=== PATIENT | female | born 1970 | race Caucasian/White ===

== ENCOUNTER 2019-01-08 03:19 | Emergency (ER) | payer BC ==
[2019-01-08] MEDS ORDERED: MORPHINE 4 MG/ML SYR ONE ×2 (03:45→06:29)
[2019-01-08] MEDS ORDERED: ONDANSETRON 4 MG/2 ML VIAL ONE (03:45)
[2019-01-08 04:29] LABS: Basophils % 1.2 % (0-1.3); Hematocrit 40.6 % (36.0-45.0); Lymphocytes % 36.2 % (15.3-44.8); MPV 8.7 fL (7.6-11.3); RBC Red Blood Cell Count 4.55 M/uL (3.86-4.86)
[2019-01-08 04:37] LABS: ALT/SGPT 40 U/L (12-78); AST/SGOT 18 U/L (15-37); Alkaline Phosphatase 72 U/L (45-117); BUN Blood Urea Nitrogen 19 mg/dL (7-18); Bicarbonate 27 mmol/L (21-32); Bilirubin Direct < 0.1 mg/dL (0-0.2); Bilirubin Total 0.3 mg/dL (0.2-1.0); Glucose Level 131 mg/dL (74-106); Lipase 243 U/L (73-393); Potassium 3.8 mmol/L (3.5-5.1); Sodium Level 144 mmol/L (136-145)
[2019-01-08 05:34] LABS: Urine Bacteria <20 /HPF (<20); Urine Culture Reflex Order NOT NEEDED; Urine RBC >50 /HPF (NONE SEEN)
[2019-01-08] MEDS ORDERED: TAMSULOSIN 0.4 MG SR CAP ONE (06:40)
[2019-01-08] MEDS ORDERED: MAGNESIUM SULFATE 1 gm IVPB 1 GM/100 ML BAG IV ONE (06:40)
[2019-01-08] MEDS ORDERED: KETOROLAC 30 MG/ML INJ ONE (06:40)
--- NOTE | 2019-01-08 07:53 | EDPHYS ---
Physician Documentation [facility] Name: Britt Aragon Age: 48 yrs Sex: Female : 1970 Arrival Date: 01/08/2019 Time: 03:21 Bed 2 Private MD: ED Physician Dilip Marin HPI: 01/08 04:05 This 48 yrs old Female presents to ER via Ambulatory with complaints of rn Abdominal Pain. 04:05 The patient presents with abdominal pain left flank. rn 04:05 Onset: The symptoms/episode began/occurred yesterday. The symptoms do not radiate. rn Associated signs and symptoms: Pertinent positives: constipation, nausea, Pertinent negatives: blood in stools, chest pain, diarrhea, dysuria, fever. Associated signs and symptoms: Pertinent negatives: hematuria. Modifying factors: The symptoms are alleviated by nothing, the symptoms are aggravated by nothing. Severity of pain: At its worst the pain was moderate in the emergency department the pain is unchanged. The patient has not experienced similar symptoms in the past. The patient has not recently seen a physician. [employer]: 03:41 LMP N/A - uterine ablation bb Historical: - Allergies: 03:41 progesterone; bb - Home Meds: 03:41 Butalbital Compound 50-325-40 mg Oral tab [Active]; ibuprofen 800 mg Oral tab [Active]; bb amitriptyline 10 mg Oral tab [Active]; trazodone 50 mg Oral tab nightly [Active]; montelukast 10 mg oral tab 1 tab once daily [Active]; ferrous sulfate 325 mg (65 mg iron) Oral TbEC [Active]; levocetirizine 5 mg oral tab 1 tab once daily [Active]; - PMHx: 03:41 Migraines; "Nerve issue in head"; bb - PSHx: 03:41 tubes removed; lasik; ; wrist surgery; uterine ablation; bb - Immunization history:: Adult Immunizations up to date. - Social history:: Smoking status: Patient uses tobacco products, Vapes. - Ebola Screening: : No symptoms or risks identified at this time. - Family history:: not pertinent. - Hospitalizations: : No recent hospitalization is reported. ROS: 04:05 Constitutional: Negative for fever, chills, and weight loss, Eyes: Negative for injury, rn pain, redness, and discharge, Neck: Negative for injury, pain, and swelling, Cardiovascular: Negative for chest pain, palpitations, and edema, Respiratory: Negative for shortness of breath, cough, wheezing, and pleuritic chest pain, Abdomen/GI: + left flank and abd pain, + nausea, + constipation : Negative for injury, bleeding, discharge, and swelling, MS/Extremity: Negative for injury and deformity, Skin: Negative for injury, rash, and discoloration, Neuro: Negative for headache, weakness, numbness, tingling, and seizure. Exam: 04:05 Constitutional: This is a well developed, well nourished patient who is awake, alert, rn appears uncomfortable Head/Face: Normocephalic, atraumatic. ENT: MMM Neck: Trachea midline, no thyromegaly or masses palpated, and no cervical lymphadenopathy. Supple, full range of motion without nuchal rigidity, or vertebral point tenderness. No Meningismus. Cardiovascular: Regular rate and rhythm. No pulse deficits. Respiratory: No increased work of breathing, no retractions or nasal flaring. Abdomen/GI: Soft, non-tender MS/ Extremity: Pulses equal, no cyanosis. Neurovascular intact. Full, normal range of motion. Equal circumference. Neuro: Awake and alert, GCS 15, oriented to person, place, time, and situation. Cranial nerves II-XII grossly intact. Motor strength 5/5 in all extremities. Sensory grossly intact. Cerebellar exam normal. Vital Signs: 03:41 BP 157 / 88; Pulse 64; Resp 16 S; Temp 97.7(O); Pulse Ox 98% on R/A; Weight 73.03 kg bb (R); Height 4 ft. 11 in. (149.86 cm) (R); Pain 10/10; 04:17 BP 128 / 73; Pulse 66; Resp 17; Pulse Ox 98% ; Pain 4/10; rr5 05:34 BP 122 / 78; Pulse 55; Resp 17; Pulse Ox 97% on R/A; tl1 06:30 BP 137 / 75; Pulse 65; Resp 20; Pulse Ox 98% ; Pain 10/10; rr5 07:35 BP 127 / 70; Pulse 49; Resp 17; Pulse Ox 96% on R/A; Pain 6/10; tw2 08:07 BP 147 / 68; Pulse 86; Resp 17; Pulse Ox 98% on R/A; Pain 3/10; tw2 03:41 Body Mass Index 32.52 (73.03 kg, 149.86 cm) bb MDM: 03:23 Patient medically screened. rn 07:50 Data reviewed: vital signs, nurses notes, lab test result(s), radiologic studies, CT cp scan, and as a result, I will. 07:50 Counseling: I had a detailed discussion with the patient and/or guardian regarding: the cp historical points, exam findings, and any diagnostic results supporting the discharge/admit diagnosis, lab results, radiology results, the need for outpatient follow up, a urologist. Response to treatment: the patient's symptoms have markedly improved after treatment, VSS. Pain markedly improved, and as a result, I will discharge patient. 01/08 03:41 Order name: CBC with Diff rn 01/08 03:41 Order name: Basic Metabolic Panel rn 01/08 03:41 Order name: Hepatic Function rn 01/08 03:41 Order name: Lipase rn 01/08 03:41 Order name: Urine Microscopic Only rn 01/08 04:39 Order name: Basic Metabolic Panel; Complete Time: 06:25 EDMS 01/08 03:41 Order name: CT Stone Protocol rn 01/08 04:39 Order name: Liver (Hepatic) Function; Complete Time: 06:25 EDMS 01/08 04:39 Order name: Lipase; Complete Time: 06:25 EDMS 01/08 04:39 Order name: CBC with Automated Diff; Complete Time: 06:25 EDMS 01/08 05:35 Order name: Urine Microscopic Only; Complete Time: 06:25 EDID 01/08 03:41 Order name: IV Saline Lock; Complete Time: 03:46 rn 01/08 03:41 Order name: Labs collected and sent; Complete Time: 03:46 rn 01/08 03:41 Order name: Urine Dipstick-Ancillary (obtain specimen); Complete Time: 04:26 rn Administered Medications: 03:45 Drug: Zofran 4 mg Route: IVP; Site: right antecubital; rr5 04:17 Follow up: Response: No adverse reaction rr5 03:48 Drug: morphine 4 mg {Note: rass 0.} Route: IVP; Site: right antecubital; rr5 04:16 Follow up: Response: No adverse reaction; Pain is decreased; RASS: Alert and Calm (0) rr5 06:32 Drug: morphine 4 mg {Note: rass 0.} Route: IVP; Site: right antecubital; rr5 07:34 Follow up: Response: No adverse reaction; Pain is decreased; RASS: Light sedation (-2) tw2 06:42 Drug: TORadol - Ketorolac 15 mg Route: IVP; Site: right antecubital; rr5 07:34 Follow up: Response: No adverse reaction; Pain is decreased tw2 06:44 Drug: Magnesium Sulfate 1 grams Route: IVPB; Infused Over: 1 hrs; Site: right rr5 antecubital; 08:00 Follow up: IV Status: Completed infusion tw2 06:44 Drug: Flomax 0.4 mg Route: PO; rr5 07:20 Follow up: Response: No adverse reaction tw2 Disposition: 01/08/19 07:52 Discharged to Home. Impression: Calculus of kidney and ureter - left. - Condition is Stable. - Discharge Instructions: Kidney Stones. - Prescriptions for Tylenol- Codeine #3 300-30 mg Oral Tablet - take 2 tablets by ORAL route every 6 hours As needed; 20 tablet. Zofran 4 mg Oral Tablet - take 1 tablet by ORAL route every 12 hours As needed; 20 tablet. Flomax 0.4 mg Oral Capsule, Sust. Release 24 hr - take 1 capsule by ORAL route once daily 1/2 hour following the same meal each day; 5 capsule. Cipro 500 mg Oral Tablet - take 1 tablet by ORAL route every 12 hours for 7 days; 14 tablet. - Medication Reconciliation Form, Thank You Letter, Antibiotic Education, Prescription Opioid Use, Work release form, Family Work Release form. - Follow up: Jorje Soto MD; When: Tomorrow; Reason: Recheck today's complaints. - Problem is new. - Symptoms have improved. Signatures: Dispatcher [employer] Padmaja Guevara RN RN Dilip Magana MD MD rn Page, Corey, PA PA cp Wise, Tara, RN RN tw2 Armani Kelsey RN RN rr5 Corrections: (The following items were deleted from the chart) 07:55 07:52 01/08/2019 07:52 Discharged to Home. Impression: Calculus of kidney and ureter - cp right. Condition is Stable. Forms are Medication Reconciliation Form, Thank You Letter, Antibiotic Education, Prescription Opioid Use. Follow up: Jorje Soto; When: Tomorrow; Reason: Recheck today's complaints. Problem is new. Symptoms have improved. cp 08:08 07:55 01/08/2019 07:52 Discharged to Home. Impression: Calculus of kidney and ureter - tw2 left. Condition is Stable. Discharge Instructions: Kidney Stones. Prescriptions for Tylenol-Codeine #3 300-30 mg Oral Tablet - take 2 tablets by ORAL route every 6 hours As needed; 20 tablet, Zofran 4 mg Oral Tablet - take 1 tablet by ORAL route every 12 hours As needed; 20 tablet, Flomax 0.4 mg Oral Capsule, Sust. Release 24 hr - take 1 capsule by ORAL route once daily 1/2 hour following the same meal each day; 5 capsule, Cipro 500 mg Oral Tablet - take 1 tablet by ORAL route every 12 hours for 7 days; 14 tablet. and Forms are Medication Reconciliation Form, Thank You Letter, Antibiotic Education, Prescription Opioid Use, Work release form, Family Work Release. Follow up: Jorje Soto; When: Tomorrow; Reason: Recheck today's complaints. Problem is new. Symptoms have improved. cp
--- NOTE | 2019-01-08 07:53 | ER ---
Nurse's Notes [facility] Name: Britt Aragon Age: 48 yrs Sex: Female : 1970 Arrival Date: 01/08/2019 Time: 03:21 Bed 2 Private MD: Diagnosis: Calculus of kidney and ureter-left Presentation: 01/08 03:34 Presenting complaint: Patient states: she has left sided back pain radiating to abdomen bb since yesterday morning, pain is intermittent but is getting worse now it is 10/10 the pain woke her up from a sleep tonight. Transition of care: patient was not received from another setting of care. Onset of symptoms was January 06, 2019. Risk Assessment: Do you want to hurt yourself or someone else? Patient reports no desire to harm self or others. Initial Sepsis Screen: Does the patient meet any 2 criteria? No. Patient's initial sepsis screen is negative. Does the patient have a suspected source of infection? No. Patient's initial sepsis screen is negative. Care prior to arrival: None. 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 LMP N/A - uterine ablation bb Historical: - Allergies: 03:41 progesterone; bb - Home Meds: 03:41 Butalbital Compound 50-325-40 mg Oral tab [Active]; ibuprofen 800 mg Oral tab [Active]; bb amitriptyline 10 mg Oral tab [Active]; trazodone 50 mg Oral tab nightly [Active]; montelukast 10 mg oral tab 1 tab once daily [Active]; ferrous sulfate 325 mg (65 mg iron) Oral TbEC [Active]; levocetirizine 5 mg oral tab 1 tab once daily [Active]; - PMHx: 03:41 Migraines; "Nerve issue in head"; bb - PSHx: 03:41 tubes removed; lasik; ; wrist surgery; uterine ablation; bb - Immunization history:: Adult Immunizations up to date. - Social history:: Smoking status: Patient uses tobacco products, Vapes. - Ebola Screening: : No symptoms or risks identified at this time. - Family history:: not pertinent. - Hospitalizations: : No recent hospitalization is reported. Screenin:49 Abuse screen: Denies threats or abuse. Denies injuries from another. Nutritional rr5 screening: No deficits noted. Tuberculosis screening: No symptoms or risk factors identified. Fall Risk IV access (20 points). Total Mosqueda Fall Scale indicates No Risk (0-24 pts). Assessment: 03:35 General: Appears in no apparent distress. uncomfortable, Behavior is calm, cooperative, rr5 appropriate for age. 03:35 Pain: Complains of pain in back Pain radiates to abdomen Pain currently is 10 out of 10 rr5 on a pain scale. Quality of pain is described as aching, Pain began gradually, Is intermittent. Neuro: Level of Consciousness is awake, alert, obeys commands, Oriented to person, place, time, situation, Appropriate for age. Cardiovascular: Capillary refill < 3 seconds Patient's skin is warm and dry. Respiratory: Airway is patent Respiratory effort is even, unlabored, Respiratory pattern is regular, symmetrical. GI: Abdomen is round Bowel sounds present X 4 quads. Abd is soft Reports lower abdominal pain, upper abdominal pain. : Reports pain in left flank(s). EENT: No signs and/or symptoms were reported regarding the EENT system. Derm: Skin is intact, Skin temperature is warm. Musculoskeletal: Circulation, motion, and sensation intact. Capillary refill < 3 seconds. 04:17 Reassessment: Patient appears in no apparent distress at this time. Patient is alert, rr5 oriented x 3, equal unlabored respirations, skin warm/dry/pink. Patient states feeling better. Patient states symptoms have improved. Pain: Pain currently is 4 out of 10 on a pain scale. 05:25 Reassessment: Patient appears in no apparent distress at this time. Patient and/or rr5 family updated on plan of care and expected duration. Pain level reassessed. Patient is alert, oriented x 3, equal unlabored respirations, skin warm/dry/pink. no complaints made awaiting for ct result. 06:25 Reassessment: complaints pain came back pain score 10/10. ED provider aware with order rr5 made and carried out. 06:25 Reassessment: awaiting for CT result. ED provider spoke to patient. rr5 07:34 Reassessment: Patient appears in no apparent distress at this time. Patient and/or tw2 family updated on plan of care and expected duration. Pain level reassessed. Patient is alert, oriented x 3, equal unlabored respirations, skin warm/dry/pink. pt is sleeping at this time, arouseable to name. 08:07 Reassessment: Patient appears in no apparent distress at this time. Patient and/or tw2 family updated on plan of care and expected duration. Pain level reassessed. Patient is alert, oriented x 3, equal unlabored respirations, skin warm/dry/pink. Vital Signs: 03:41 BP 157 / 88; Pulse 64; Resp 16 S; Temp 97.7(O); Pulse Ox 98% on R/A; Weight 73.03 kg bb (R); Height 4 ft. 11 in. (149.86 cm) (R); Pain 10/10; 04:17 BP 128 / 73; Pulse 66; Resp 17; Pulse Ox 98% ; Pain 4/10; rr5 05:34 BP 122 / 78; Pulse 55; Resp 17; Pulse Ox 97% on R/A; tl1 06:30 BP 137 / 75; Pulse 65; Resp 20; Pulse Ox 98% ; Pain 10/10; rr5 07:35 BP 127 / 70; Pulse 49; Resp 17; Pulse Ox 96% on R/A; Pain 6/10; tw2 08:07 BP 147 / 68; Pulse 86; Resp 17; Pulse Ox 98% on R/A; Pain 3/10; tw2 03:41 Body Mass Index 32.52 (73.03 kg, 149.86 cm) bb ED Course: 03:21 Patient arrived in ED. ag3 03:23 Dilip Marin MD is Attending Physician. rn 03:36 Triage completed. bb 03:40 Patient has correct armband on for positive identification. Placed in gown. Bed in low rr5 position. Call light in reach. Side rails up X2. Pulse ox on. NIBP on. 03:41 Arm band placed on Patient placed in an exam room, on a stretcher, on pulse oximetry. bb Family accompanied patient. 03:43 Inserted saline lock: 20 gauge in right antecubital area, using aseptic technique. lt1 03:46 Initial lab(s) drawn, by me, sent to lab. lt1 04:09 Armani Kelsey RN is Primary Nurse. rr5 06:37 Pedro Griffith PA is PHCP. cp 07:19 Primary Nurse role handed off by Armani Kelsey RN tw2 07:19 Leeanne Burris, RN is Primary Nurse. tw2 07:51 Jorje Soto MD is Referral Physician. cp 08:08 No provider procedures requiring assistance completed. IV discontinued, intact, tw2 bleeding controlled, No redness/swelling at site. Pressure dressing applied. 20:44 CT Stone Protocol In Process Unspecified. EDMS Administered Medications: 03:45 Drug: Zofran 4 mg Route: IVP; Site: right antecubital; rr5 04:17 Follow up: Response: No adverse reaction rr5 03:48 Drug: morphine 4 mg {Note: rass 0.} Route: IVP; Site: right antecubital; rr5 04:16 Follow up: Response: No adverse reaction; Pain is decreased; RASS: Alert and Calm (0) rr5 06:32 Drug: morphine 4 mg {Note: rass 0.} Route: IVP; Site: right antecubital; rr5 07:34 Follow up: Response: No adverse reaction; Pain is decreased; RASS: Light sedation (-2) tw2 06:42 Drug: TORadol - Ketorolac 15 mg Route: IVP; Site: right antecubital; rr5 07:34 Follow up: Response: No adverse reaction; Pain is decreased tw2 06:44 Drug: Magnesium Sulfate 1 grams Route: IVPB; Infused Over: 1 hrs; Site: right rr5 antecubital; 08:00 Follow up: IV Status: Completed infusion tw2 06:44 Drug: Flomax 0.4 mg Route: PO; rr5 07:20 Follow up: Response: No adverse reaction tw2 Outcome: 07:52 Discharge ordered by . cp 08:08 Discharged to home ambulatory, with significant other. tw2 08:08 Condition: stable 08:08 Discharge instructions given to patient, significant other, Instructed on discharge instructions, follow up and referral plans. no drinking with medication, no driving heavy equipment, medication usage, Demonstrated understanding of instructions, follow-up care, medications, Prescriptions given X 4. 08:08 Patient left the ED. tw2 Signatures: Dispatcher [employer] EDMS Padmaja Baires RN RN bb Nieto, Roman, MD MD rn Lasagna, Tonya, RN RN tl1 Pedro Griffith PA PA cp Leeanne Burris RN RN tw2 Isa Frausto ag3 Armani Kelsey RN RN rr5 Jhoana Hyatt lt1 Corrections: (The following items were deleted from the chart) 07:35 07:35 BP 127 / 70; Pulse 49bpm; Resp 17bpm; Pulse Ox 96% RA; tw2 tw2
[2019-01-08 08:25] VITALS: TEMP 97.7
[2019-01-08 08:32] VITALS: BP 147/68; O2SAT 98
--- NOTE | 2019-01-09 10:25 | RAD REPORT ---
EXAM DESCRIPTION: CT Abdomen and Pelvis Without Intravenous Contrast CLINICAL HISTORY: The patient is 48 years old and is Female; left flank and abd pain TECHNIQUE: Axial computed tomography images of the abdomen and pelvis without intravenous contrast. Sagittal and coronal reformatted images were created and reviewed. This CT exam was performed usi ng one or more of the following dose reduction techniques: automated exposure control, adjustment o f the mA and/or kV according to patient size, and/or use of iterative reconstruction technique. COMPARISON: No relevant prior studies available. FINDINGS: LUNG BASES: Unremarkable. No mass. No consolidation. ABDOMEN: LIVER: Homogeneous without focal mass. GALLBLADDER AND BILE DUCTS: No calcified stones. No ductal dilation. PANCREAS: Unremarkable. No ductal dilation. SPLEEN: A splenule is present within the left upper quadrant. The spleen is unremarkable. ADRENALS: Unremarkable. No mass. KIDNEYS AND URETERS: Mild left hydronephrosis and proximal hydroureter is present secondary to a 6 mm proximal left ureteral calculus. Edema of the left kidney with minimal perinephric stranding is present. Bilateral intrarenal calcifications are present. STOMACH AND BOWEL: The stomach is distended with food contents. The small bowel is normal in koffi iber. Stool is present throughout the colon. There is no mucosal thickening or evidence of bowel obst ruction. PELVIS: APPENDIX: The appendix is normal in caliber without surrounding inflammation. BLADDER: The bladder is not well distended. REPRODUCTIVE: Unremarkable as visualized. ABDOMEN and PELVIS: INTRAPERITONEAL SPACE: Unremarkable. No free air. No significant fluid collection. BONES/JOINTS: No acute fracture. SOFT TISSUES: The soft tissues are normal. VASCULATURE: Unremarkable. No abdominal aortic aneurysm. LYMPH NODES: Unremarkable. No enlarged lymph nodes. IMPRESSION: 1. Mild left hydronephrosis and proximal hydroureter is present secondary to a 6 mm pr oximal left ureteral calculus. 2. Bilateral nephrolithiasis. Electronically signed by: Janey Lazo MD 01/08/2019 6:22 AM CDT Due to temporary technical issues with the PACS/Fluency reporting system, reports are being signed by the in house radiologist as a courtesy to ensure prompt reporting. The interpreting radiologist is f ully responsible for the content of the report.
== END 2019-01-08 08:08 | disposition home or self-care (01) ==
LOC: ER 03:19
DX: N20.2 Calculus of kidney with calculus of ureter (principal); F17.290 Nicotine dependence, other tobacco product, uncomplicated; Z88.8 Allergy status to other drugs, medicaments and biological substances
CPT/HCPCS: 96365; 85025; 80048; 36415; 80076; 81015; 83690; 76377; 74176; 96375; 99284; J3475; J2405

== ENCOUNTER 2020-04-23 16:24 | Emergency (ER) | payer BC ==
--- OUTSIDE RECORDS SUMMARY | 2020-04-23 16:26 | XMS REPORT | Continuity of Care Document ---
:1970 Author Organization [facility] t Address [address] [place] [address] Care Team Providers Name Role Phone yMles ANGELES, Romero Attending Clinician Javad ANGELES, David Attending Clinician Problems This patient has no known problems. Allergies, Adverse Reactions, Alerts This patient has no known allergies or adverse reactions. Medications This patient has no known medications. Procedures This patient has no known procedures. Encounters Start End Encounter Admission Attending Care Care Encounter Source Date/Time Date/Time Type Type Clinicians Facility Department ID 2020-02-12 2020-02-12 Refill [facility] [id number] 00:00:00 00:00:00 Thai Ridley [id number] [place] [id number] Profmya [phone] [address] 2019-11-07 2019-11-07 [facility] [id number] 14:59:00 23:59:00 Encounter Aleisha Hernandez RONAN [id number] [facility] [id number] 2019-10-30 2019-10-30 Telephone Myles [facility] [id number] 00:00:00 00:00:00 Thai Ridley [id number] [place] [id number] Jenna [phone] [facility] 092 [facility] 2019-10-10 2019-10-10 Office Myles [facility] [id number] 09:35:15 10:05:04 Visit Thai Ridley [id number] [facility] [id number] [phone] [facility] Results This patient has no known results.
--- OUTSIDE RECORDS SUMMARY | 2020-04-23 16:27 | XMS REPORT | Summary of Care ---
:1970 Author Organization [facility] - [address] [address] Care Team Providers Name Role Phone Pedro Hammer Primary Care Provider Reason for Visit Reason Comments Refill Request Encounter Details Date Type Department Care Team Description 02/12/2020 Refill [facility] Thai Bueno MD Refill Request Neurology-[address] [place] [id number] [address] [place] [id number] [phone] Allergies Active Allergy Reactions Severity Noted Date Comments Progesterone Unknown - See comments 09/07/2018 Becom es angry Tegaderm Dressing Itching 09/27/2018 documented as of this encounter (statuses as of 02/12/2020) Medications Medication Sig Dispensed Refills Start End Date Status Date ferrous sulfate 325 TK 1 T PO D 0 Active mg (65 mg iron) 9 tablet levocetirizine Take by 0 Activ e dihydrochloride mouth. (XYZAL ORAL) montelukast 10 mg 0 Ac tive tablet 9 Ibuprofen 200 mg Take by 0 Act duane capsule mouth. melatonin 10 mg TbDL Take by 0 Active mouth. conj Take 1 30 tablet 11 Active estrogens-bazedoxife tablet by 9 ne (DUAVEE) 0.45-20 mouth daily. mg TabIndications: Menopause present, Postmenopausal HRT (hormone replacement therapy) buPROPion SR Take 150 mg 0 Activ e (WELLBUTRIN SR) 150 by mouth 2 mg SR tablet (two) times daily. Quetiapine 50 mg Take by 0 Act duane tablet mouth. gabapentin 300 mg TAKE 2 180 capsule 2 Active capsule CAPSULES BY 0 MOUTH THREE TIMES DAILY gabapentin 300 mg TAKE 2 180 capsule 2 02/12/20 Discontinued capsule CAPSULES BY 0 20 (Reorder ) MOUTH THREE TIMES DAILY documented as of this encounter (statuses as of 02/12/2020) Active Problems Problem Noted Date Abnormal mammogram 02/21/2019 Overview: 02/21/2019 - screening mammogram revealed a normal right breast and a possible cyst of the left breast. 03/02/19 - left breast US - Numerous cyst ic lesions were detected ranging from 4.1 mm at 10:00 to the largest lesion of 12 mm at 10 in the deep portion of the breast. Additional cystic lesions are seen b etween 9 and 3:00 in the entire left upp er breast. In the lateral peripheral region, an inc idental finding of 6 mm lymph node. CONCLUSIONS: No worrisome solid masses detected. Images were reviewed and the findings were discussed with the patient. Annual bilateral mammography evaluation is nathalie ropriate. ACR classification: Category II. Menopause present 02/11/2019 Overview: 02/10/19 - FSH 45, E2 <20 c/w menopause 03/22/19 - FSH 18.9, E2 40 Elevated transaminase level 02/11/2019 Overview: 02/10/19 - AST 43, ALT 64. Patient will be discussing with GI. Screening for colorectal cancer 11/11/2018 Overview: Added automatically from request for dangelo vasile [id number] Stricture of sigmoid colon 10/19/2018 Encounter for female sterilization procedure 9 Overview: 09/27/18 - s/p laparoscopic b/l salpingect vicente. Histology benign Acute cystitis without hematuria 09/25/2018 Overview: 09/21/18 - Urine culture > 100K. E. Coli. S/p Rocephin and Macrobid. 02/11/19 - Urine culture revealed 10,000 -100,000 CFU/mL Streptococcus anginosus s/p Amoxicillin. Obesity (BMI 30-39.9) 09/21/2018 Secondary oligomenorrhea 09/07/2018 Overview: 09/07/18 - hysteroscopy revealed thickene d endometrial tissue. EMB benign. Postcoital bleeding 08/09/2018 Abnormal uterine bleeding 08/09/2018 Overview: 08/09/18 - oligomenorrhea. Pelvic US. RTC for a hysteroscopy with EMB. 08/17/18 - The uterus is normal in size, shape and echotexture. The uterus measures 9.9 x 5.2 x 6.6 cm. An area of hypoechoic appearance is seen in the lower uterine segment likely representing scar from previous . Also noted is a hyp oechoic relatively well-circumscribed area adjacent to the scar tissue. This measures 2.3 x 2.0 x 1.8 cm in size and is likely a fib roid. The endometrial stripe is normal and measures 7.3 mm. Both ovaries are normal. There is a small hypoechoic lesion is present in the right ovary with multipl e thin septations, measuring 1.7 x 1.4 x 1.0 cm and is likely a hemorrhagic cyst. 09/27/18 - s/p endometrial ablation and b/ l salpingectomy. Histology benign Family history of breast cancer 08/09/2018 Overview: FH of maternal aunt and grandmother with breast cancer documented as of this encounter (statuses as of 02/12/2020) Resolved Problems Problem Noted Date Resolved Date Oligomenorrhea, unspecified type 09/21/201803/22/ 019 Overview: Added automatically from request for dangelo burnette [id number] documented as of this encounter (statuses as of 02/12/2020) Social History Tobacco Use Types Packs/Day Years Used Date Former Smoker Cigarettes Quit: 12/09/19 12 Smokeless Tobacco: Current User Comments: currently vaping Alcohol Use Drinks/Week oz/Week Comments Yes rare Sex Assigned at Date Recorded Not on file documented as of this encounter Last Filed Vital Signs Not on filedocumented in this encounter Miscellaneous Notes Telephone Encounter - Odessa Anderson LVN - 02/12/2020 2:46 PM CDT Requested Prescriptions Pending Prescriptions Disp Refills gabapentin 300 mg capsule 180 capsule 2 Sig: TAKE 2 CAPSULES BY MOUTH THREE TIMES DAILY Refilled per guidelines, sent to pharmacy on file. ODESSA ANDERSON LVN 02/12/2020 2:47 PM elephone Encounter - Shalonda Méndez LVN - 02/12/2020 2:27 PM CDT Received erx refill request for: Requested Prescriptions Pending Prescriptions Disp Refills gabapentin 300 mg capsule 180 capsule 2 Sig: TAKE 2 CAPSULES BY MOUTH THREE TIMES DAILY Last filled: gabapentin 300 mg capsule 180 capsule 2 10/30/2019 Follow up scheduled for : Not scheduled yet Last office visit: 10-10-19 Refilled approval sent to: [facility]: [id number] - [place], [place] - [address] [place] [address] Refilled per Guidelines documented in this encounter Plan of Treatment Health Maintenance Due Date Last Done Comments DTaP,Tdap,and Td Vaccines (1 02/24/1991 - Tdap) INFLUENZA VACCINE (#1) 2019 Breast Cancer Screening 02/22/2020 02/21/2019, (MAMMOGRAM) 01/29/2014 Depression Screening 03/13/2020 03/13/2019 PAP SMEAR 08/09/2021 08/09/2018, 01/30/2014 COLONOSCOPY 11/29/2028 11/29/2018 Colorectal Cancer Screening 11/29/2028 PNEUMOCOCCAL 0-64 YEARS Aged Out No longe r eligible based COMBINED SERIES on patient's age to complete this to pic documented as of this encounter Results Not on filedocumented in this encounter Insurance Payer Benefit Plan Subscriber ID Effective Dates Phone Address Type / Group [employer] [place] [id number] 2018-Bienvenido [phone] [address] PPO/POS [place] - OUT OF t [id number] [place] [address] documented as of this encounter
[2020-04-23] MEDS ORDERED: HYDROCODONE/APAP 10/325 TAB ONE (16:58)
--- NOTE | 2020-04-23 17:19 | RAD REPORT ---
EXAM DESCRIPTION: CTSpine Lumbar Wo Con04/23/2020 5:02 pm CLINICAL HISTORY: Back injury with back pain and radiculopathy status post fall COMPARISON: None TECHNIQUE: Computed axial tomography lumbar spine was obtained with coronal and sagittal reconstruct ion. All CT scans are performed using dose optimization technique as appropriate and may include automated exposure control or mA/KV adjustment according to patient size. FINDINGS: An acute mild compression fracture involves the superior aspect of the L2 vertebral body. Compression is approximately 15%. The pedicles are not involved. There is no retropulsion of fracture fragment into the spinal canal. No dislocation 2.9 centimeter right ovarian cyst IMPRESSION: Mild acute compression fracture L2 vertebral body 2.9 centimeter right ovarian cyst. Ultrasound in approximately 2 months recommended to assess stabili ty/resolution
--- NOTE | 2020-04-23 17:24 | RAD REPORT ---
EXAM DESCRIPTION: CT - Pelvis Wo Cont - 04/23/2020 5:02 pm CLINICAL HISTORY: Pelvic pain status post fall COMPARISON: None. TECHNIQUE: Computed axial tomography of the pelvis was obtained. Coronal and sagittal reconstruction performed All CT scans are performed using dose optimization technique as appropriate and may include automated exposure control or mA/KV adjustment according to patient size. FINDINGS: No fracture or dislocation seen. Muscles are normal size and density. A subcutaneous contusion is not noted No significant hip joint effusion IMPRESSION: No fracture seen
--- NOTE | 2020-04-23 17:56 | EDPHYS ---
Physician Documentation [facility] Name: Britt Aragon Age: 50 yrs Sex: Female : 1970 Arrival Date: 04/23/2020 Time: 16:28 Bed 20 Private MD: ED Physician Dilip Marin HPI: 04/23 18:02 This 50 yrs old Female presents to ER via Ambulatory with complaints of Fall kb Injury, Back Pain. 18:02 Details of fall: The patient fell from an upright position, while skating. Onset: The kb symptoms/episode began/occurred at 15:00. Associated injuries: The patient sustained injury to the low back, pain, pain with movement. Severity of symptoms: At their worst the symptoms were moderate, in the emergency department the symptoms are unchanged. The patient has not experienced similar symptoms in the past. The patient has not recently seen a physician. 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 - Social history:: Smoking status: Patient denies any tobacco usage or history of. - Immunization history: Last tetanus immunization: - up to date. ROS: 18:01 Constitutional: Negative for fever, chills, and weight loss, Cardiovascular: Negative kb for chest pain, palpitations, and edema, Respiratory: Negative for shortness of breath, cough, wheezing, and pleuritic chest pain, Abdomen/GI: Negative for abdominal pain, nausea, vomiting, diarrhea, and constipation, MS/Extremity: Negative for injury and deformity, Skin: Negative for injury, rash, and discoloration, Neuro: Negative for headache, weakness, numbness, tingling, and seizure. 18:01 Back: Positive for pain at rest, pain with movement. Exam: 18:01 Constitutional: This is a well developed, well nourished patient who is awake, alert, kb and in no acute distress. Head/Face: Normocephalic, atraumatic. Chest/axilla: Normal chest wall appearance and motion. Nontender with no deformity. No lesions are appreciated. Cardiovascular: Regular rate and rhythm with a normal S1 and S2. No gallops, murmurs, or rubs. Normal PMI, no JVD. No pulse deficits. Respiratory: Lungs have equal breath sounds bilaterally, clear to auscultation and percussion. No rales, rhonchi or wheezes noted. No increased work of breathing, no retractions or nasal flaring. Abdomen/GI: Soft, non-tender, with normal bowel sounds. No distension or tympany. No guarding or rebound. No evidence of tenderness throughout. Skin: Warm, dry with normal turgor. Normal color with no rashes, no lesions, and no evidence of cellulitis. MS/ Extremity: Pulses equal, no cyanosis. Neurovascular intact. Full, normal range of motion. Neuro: Awake and alert, GCS 15, oriented to person, place, time, and situation. Cranial nerves II-XII grossly intact. Motor strength 5/5 in all extremities. Sensory grossly intact. Cerebellar exam normal. Normal gait. 18:01 Back: pain, that is moderate, of the lumbar area, ROM is painful, with all movement, normal spinal alignment noted, vertebral tenderness, is appreciated at L2. Vital Signs: 16:34 BP 148 / 89; Pulse 94; Resp 18; Temp 98.9; Pulse Ox 99% ; Weight 91.63 kg; Height 4 ft. ll1 11 in. (149.86 cm); Pain 8/10; 18:17 BP 128 / 79; Pulse 78; Resp 17; Pulse Ox 99% ; Pain 7/10; ll1 16:34 Body Mass Index 40.80 (91.63 kg, 149.86 cm) ll1 Sera Coma Score: 16:47 Eye Response: spontaneous(4). Verbal Response: oriented(5). Motor Response: obeys ll1 commands(6). Total: 15. Trauma Score (Adult): 16:46 Eye Response: spontaneous(1); Verbal Response: oriented(1); Motor Response: obeys ll1 commands(2); Systolic BP: > 89 mm Hg(4); Respiratory Rate: 10 to 29 per min(4); Hollins Score: 15; Trauma Score: 12 MDM: 17:25 Data reviewed: vital signs, nurses notes. Data interpreted: Pulse oximetry: on room air kb is 99 %. Interpretation: normal. Counseling: I had a detailed discussion with the patient and/or guardian regarding: the historical points, exam findings, and any diagnostic results supporting the discharge/admit diagnosis, radiology results, the need for outpatient follow up, a family practitioner, to return to the emergency department if symptoms worsen or persist or if there are any questions or concerns that arise at home. 17:42 Patient medically screened. kb 04/23 16:40 Order name: CT Pelvis wo Cont; Complete Time: 17:25 kb 04/23 16:40 Order name: CT Lumbar Spine Wo Con; Complete Time: 17:25 kb Administered Medications: 16:45 Drug: [place] 10 mg-325 mg 1 tabs {Note: rass 0.} Route: PO; ll1 18:17 Follow up: Response: No adverse reaction; Pain is decreased; RASS: Alert and Calm (0) ll1 Disposition: 04/23/20 17:55 Discharged to Home. Impression: L2 compression fracture - mild, Fall on same level from slipping, tripping and stumbling. - Condition is Stable. - Discharge Instructions: Spinal Compression Fracture. - Prescriptions for Tylenol- Codeine #3 300-30 mg Oral Tablet - take 2 tablets by ORAL route every 6 hours As needed; 16 tablet. Cyclobenzaprine 10 mg Oral Tablet - take 1 tablet by ORAL route every 8 hours As needed; 21 tablet. - Medication Reconciliation Form, Thank You Letter, Antibiotic Education, Prescription Opioid Use form. - Follow up: Emergency Department; When: As needed; Reason: Worsening of condition. Follow up: Private Physician; When: 2 - 3 days; Reason: Recheck today's complaints, Continuance of care, Re-evaluation by your physician. Addendum: 04/29/2020 19:43 Co-signature as Attending Physician, Dilip Marin MD. r n Signatures: Dispatcher [employer] EDHeidi Solorio, CONCERT SINGER-C CONCERT SINGER-CkDilip Hoyos MD MD rn Lewis, Lynsay, RN RN ll1 Corrections: (The following items were deleted from the chart) 04/23 18:19 17:55 04/23/2020 17:55 Discharged to Home. Impression: L2 compression fracture - mild; ll1 Fall on same level from slipping, tripping and stumbling. Condition is Stable. Forms are Medication Reconciliation Form, Thank You Letter, Antibiotic Education, Prescription Opioid Use. Follow up: Emergency Department; When: As needed; Reason: Worsening of condition. Follow up: Private Physician; When: 2 - 3 days; Reason: Recheck today's complaints, Continuance of care, Re-evaluation by your physician. kb
--- NOTE | 2020-04-23 17:56 | ER ---
Nurse's Notes [facility] Name: Britt Aragon Age: 50 yrs Sex: Female : 1970 Arrival Date: 04/23/2020 Time: 16:28 Bed 20 Private MD: Diagnosis: L2 compression fracture - mild;Fall on same level from slipping, tripping and stumbling Presentation: 04/23 16:34 Chief complaint: Patient states: Roller skating at 1500. Fell onto buttocks. Entire ll1 lower back pain, worse on the right side. Pain radiates into R hip. States her feet burn when laying flat. Coronavirus screen: Client denies travel out of the [place] in the last 14 days. At this time, the client does not indicate any symptoms associated with coronavirus-19. Ebola Screen: Patient denies travel to an Ebola-affected area in the 21 days before illness onset. Initial Sepsis Screen: Does the patient meet any 2 criteria? HR > 90 bpm. No. Patient's initial sepsis screen is negative. Does the patient have a suspected source of infection? Yes: Bone or joint infection. Risk Assessment: Do you want to hurt yourself or someone else? Patient reports no desire to harm self or others. Onset of symptoms was April 23, 2020. 16:34 Method Of Arrival: Ambulatory [facility] 16:34 Acuity: YULY 3 ll1 16:47 Care prior to arrival: None. Mechanism of Injury: Fall. Trauma event details: Injury ll1 occurred in the [facility], Injury occurred: April 23, 2020. 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: 18:18 LMP N/A - control method [facility] Trauma Activation: Not Applicable Physician: ED Physician; Name: ; Notified At: ; Arrived At: Physician: General Surgeon; Name: ; Notified At: ; Arrived At: Physician: Radiology; Name: ; Notified At: ; Arrived At: Physician: Respiratory; Name: ; Notified At: ; Arrived At: Physician: Lab; Name: ; Notified At: ; Arrived At: Historical: - Allergies: 16:37 progesterone; ll1 - PMHx: 16:37 "Nerve issue in head"; Migraines; ll1 - PSHx: 16:37 tubes removed; lasik; uterine ablation; ; wrist surgery; ll1 - Immunization history:: Flu vaccine is not up to date. - Social history:: Smoking status: Patient denies any tobacco usage or history of. - Immunization history: Last tetanus immunization: - up to date. Screenin:45 Abuse screen: Denies threats or abuse. Nutritional screening: No deficits noted. ll1 Tuberculosis screening: No symptoms or risk factors identified. Fall Risk Fall in past 12 months (25 points). Gait- Impaired (20 pts.). Total Mosqueda Fall Scale indicates High Risk Score (45 or more points). Fall prevention measures have been instituted. Side Rails Up X 2 Frequent Obs/Assessments Occuring Family Present and informed to notify staff if the need to leave the bedside As available patient and family educated on Fall Prevention Program and Strategies. Primary Survey: 16:46 NO uncontrolled hemorrhage observed. A: The patient is alert. Airway: patent, No ll1 supplemental oxygen in use on arrival. Breathing/Chest: Respiratory pattern: regular, Respiratory effort: spontaneous, unlabored, Breath sounds: clear, Chest inspection: symmetrical rise and fall of the chest. Circulation: Pulses: palpable right radial artery and left radial artery. Skin color: pink, Skin temperature: warm, dry. Disability Alert. Exposure/Environment: There is no evidence of uncontrolled external bleeding. 18:18 Reassessment Breathing/Chest Respiratory pattern Regular Respiratory effort Spontaneous ll1 Unlabored Breath sounds Clear Chest inspection Symmetrical. Assessment: 16:44 General: Appears uncomfortable, Behavior is calm, cooperative, appropriate for age. ll1 Pain: Complains of pain in low back Pain currently is 8 out of 10 on a pain scale. Musculoskeletal: Circulation, motion, and sensation intact. Capillary refill < 3 seconds, Range of motion: intact in all extremities, Reports pain in low back/R hip. Injury Description: Bruise fall while roller skating. 17:45 Reassessment: No changes from previously documented assessment. Patient and/or family ll1 updated on plan of care and expected duration. Pain level reassessed. Patient is alert, oriented x 3, equal unlabored respirations, skin warm/dry/pink. Vital Signs: 16:34 BP 148 / 89; Pulse 94; Resp 18; Temp 98.9; Pulse Ox 99% ; Weight 91.63 kg; Height 4 ft. ll1 11 in. (149.86 cm); Pain 8/10; 18:17 BP 128 / 79; Pulse 78; Resp 17; Pulse Ox 99% ; Pain 7/10; ll1 16:34 Body Mass Index 40.80 (91.63 kg, 149.86 cm) ll1 Sera Coma Score: 16:47 Eye Response: spontaneous(4). Verbal Response: oriented(5). Motor Response: obeys ll1 commands(6). Total: 15. Trauma Score (Adult): 16:46 Eye Response: spontaneous(1); Verbal Response: oriented(1); Motor Response: obeys ll1 commands(2); Systolic BP: > 89 mm Hg(4); Respiratory Rate: 10 to 29 per min(4); Liberty Score: 15; Trauma Score: 12 ED Course: 16:28 Patient arrived in ED. ag5 16:36 Triage completed. ll1 16:37 Arm band placed on. ll1 16:41 Heidi Jefferson FNP-C is PHCP. kb 16:41 Dilip Marin MD is Attending Physician. kb 16:41 Darien Crawley, KATE is Primary Nurse. ll1 16:47 Patient has correct armband on for positive identification. Bed in low position. Call ll1 light in reach. Side rails up X 1. Cardiac monitoring not applicable on this patient. 17:03 CT Pelvis wo Cont In Process Unspecified. EDMS 17:03 CT Lumbar Spine Wo Con In Process Unspecified. EDMS 18:18 No provider procedures requiring assistance completed. Patient did not have IV access ll1 during this emergency room visit. 18:18 Patient maintains SpO2 saturation greater than 95% on room air. Thermoregulation: warm ll1 blanket given to patient. Administered Medications: 16:45 Drug: [place] 10 mg-325 mg 1 tabs {Note: rass 0.} Route: PO; ll1 18:17 Follow up: Response: No adverse reaction; Pain is decreased; RASS: Alert and Calm (0) ll1 Intake: 16:47 PO: 50ml; Total: 50ml. ll1 Outcome: 17:55 Discharge ordered by . kb 18:18 Discharged to home ambulatory. ll1 18:18 Condition: stable 18:18 Discharge instructions given to patient, Instructed on discharge instructions, follow up and referral plans. medication usage, Demonstrated understanding of instructions, follow-up care, medications, Prescriptions given X 2. 18:18 Patient's length of stay in the Emergency Department was greater than 2 hours. ll1 Patient's length of stay was extended due to staffing issues within the emergency department. 18:19 Patient left the ED. ll1 Signatures: Dispatcher [employer] EDHeidi Solorio, BRAYAN CHONG-Salvador Elliott ag5 Darien Crawley, RN RN ll1
[2020-04-23 18:23] VITALS: TEMP 98.9; O2SAT 99
[2020-04-23 18:25] VITALS: BP 128/79
== END 2020-04-23 18:19 | disposition home or self-care (01) ==
LOC: ER 16:24
DX: S32.029A Unspecified fracture of second lumbar vertebra, initial encounter for closed fracture (principal); W19.XXXA Unspecified fall, initial encounter; Y93.21 Activity, ice skating; Y92.9 Unspecified place or not applicable; Z91.048 Other nonmedicinal substance allergy status
CPT/HCPCS: 72131; 72192; 99284

== ENCOUNTER 2020-09-17 07:02 | Day surgery (SDC) | payer BC ==
[2020-09-11 13:55] LABS: Urine Appearance CLOUDY (Clear); Urine Bilirubin NEGATIVE (Negataive); Urine Blood TRACE (Negative); Urine Color YELLOW (Yellow); Urine Glucose NEGATIVE (Negative); Urine Protein NEGATIVE (Negative); Urine Specific Gravity 1.015 (1.005-1.030)
[2020-09-11 13:59] LABS: Absolute Lymphocytes (CBC) 1.9 K/uL (0.7-4.9); Basophils % 1.3 % (0-1.3); Hematocrit 40.5 % (36.0-45.0); Lymphocytes % 33.8 % (15.3-44.8); MPV 8.4 fL (7.6-11.3); RBC Red Blood Cell Count 4.64 M/uL (3.86-4.86)
[2020-09-11 14:00] LABS: Urine Microscopic Reflex ORDER UMIC
[2020-09-11 14:50] LABS: Urine Bacteria <20 /HPF (<20); Urine RBC <5 /HPF (NONE SEEN)
[2020-09-17] MEDS ORDERED: SCOPOLAMINE HYDROBROMIDE PATCH TD ONE ×2 (07:20→07:39)
[2020-09-17] MEDS ORDERED: Ringers Lactate 1,000 ML IV ONE ×2 (07:39→09:54)
[2020-09-17] MEDS ORDERED: CEFAZOLIN/SWI 2gm 2 GM/20 ML SYR ONE (07:39)
[2020-09-17] MEDS ORDERED: GLYCOPYRROLATE 0.2 MG/ML SYR ONE (07:46)
[2020-09-17] MEDS ORDERED: ROCURONIUM 50 MG/5 ML VIAL IV ONE ×3 (07:46→09:18)
[2020-09-17] MEDS ORDERED: propofoL 200 MG/20 ML VIAL IV ONE (07:46)
[2020-09-17] MEDS ORDERED: LIDOCAINE 2% MPF 5 ML VIAL ONE (07:47)
[2020-09-17] MEDS ORDERED: MIDAZOLAM HCL 2 MG/2 ML INJ ONE (07:47)
[2020-09-17] MEDS ORDERED: FENTANYL CITR 250 MCG/5 ML ONE (07:47)
[2020-09-17] MEDS ORDERED: ONDANSETRON 4 MG/2 ML VIAL ONE (07:47)
[2020-09-17] MEDS ORDERED: NA CHLORIDE 0.9% 1,000 ML ONE ×2 (08:04→12:34)
[2020-09-17] MEDS ORDERED: EPHEDRINE SULF 50 MG/ML VIAL ONE (08:55)
[2020-09-17] MEDS ORDERED: dexAMETHasone 10 MG/ML VIAL ONE (09:17)
[2020-09-17] MEDS ORDERED: KETOROLAC 30 MG/ML INJ ONE (09:17)
[2020-09-17] MEDS ORDERED: FENTANYL CITR 100 MCG/2 ML ONE (10:40)
[2020-09-17] MEDS ORDERED: HYDROCODONE/APAP 5/325 MG TAB ONE (13:40)
[2020-09-17 14:32] VITALS: TEMP 98; O2SAT 96
[2020-09-17 14:34] VITALS: BP 125/57
--- NOTE | 2020-09-17 21:32 | OP ---
Date of Procedure: 09/17/2020 Surgeon: Malinda Desir MD Die Designer: Vicky Ty. Preoperative Diagnoses: Recurrent menorrhagia (AUB-A/O) after ablation 2 years ago, pelvic pain. Postoperative Diagnoses: Recurrent menorrhagia (AUB-A/O) after ablation 2 years ago, pelvic pain, an d extensive endometriosis in the pelvic peritoneum, both cul-de-sac and lateral tompkins and anterior ab dominal wall. Then, she also has uterine prolapse to the first degree with apical descent that was m ost prominent. Procedures Performed: 1.Total laparoscopic hysterectomy. 2.Extensive lysis of bladder adhesions from her . 3.Endometriosis excision. 4.Uterosacral suspension. 5.Cystoscopy. Ebl: 50. Urine Output: 300. Complications: No complications. Drains: No drains. Condition: Stable. Findings: The patient had extensive endometriosis in the posterior cul-de-sac lateral tompkins on the s idewall, anterior abdominal wall on the left, anterior abdominal wall on the peritoneum. Then, there were implants on the serosa of the uterus. Both ovaries appeared to be unremarkable, free of endometriosis, and they were left intact. There we re extensive bladder adhesions starting in the anterior cul-de-sac, and they were adhered to the ante rior wall of the uterus and at the site of the hysterotomy. These adhesions also were adhered to the anterior abdominal wall creating another layer of this, and these were all taken down systematically, and bladder freed up and then the procedure was performed. Description Of Procedure: After informed consent was verified, the patient was taken back to OR, renetta rufus in supine fashion on the operating table. 2 g of Ancef were given. She was placed in a dorsal l ithotomy position. Abdomen, vulva, vagina, and perineum were prepped and draped in a sterile fashion . Nieto was placed to drain the bladder and a large VCare was introduced into the uterus in the usua l fashion after holding the cervix with 2 Allis clamps and sounding to 9.5 cm. The manipulator was f ixed in place. This was then draped after connecting the Nieto to retrograde filling bag. A 1 cm infraumbilical curvilinear incision was made after injecting with 0.5% Marcaine. Then, fascia was dissected down and incised with the knife, tagged both edges after holding them with Filiberto's wi th 0 Vicryl sutures. Peritoneum was entered sharply. S-retractors were placed. Jaspal was introduc ed. Site of entry was checked, unremarkable. Upper abdominal surfaces including the omentum, surfac e of the liver, peritoneum covering the diaphragm were all inspected. No evidence of any endometrios is. The patient was then placed in Trendelenburg position. There were clear adhesions of the uterus to the anterior abdominal wall, lower wall. There appeared to be slight diastasis with lack of len toneum under the fascia in the lower half of the lower midline anterior wall. A 5 mm left lower quadrant port was placed. LigaSure was used to take down the adhesions from the an terior abdominal wall. Bladder was dissected away from the wall and then dissected away from the tanner agueda, and the uterus was dissected away from the anterior abdominal wall and the adhesions. The later al tompkins were both freed up from the adhesions using the same LigaSure. There was sharp and cautery assisted dissection. Once this was done, 10 mm suprapubic incision was made and a 10 port was placed through this and 5 right lower quadrant port. The bowel was retracted using the epiploicae by passi ng 3-0 Monocryl suture through them. Left upper quadrant Adarsh-Tomasz needle was used to retract the sutures placed through these epiploicae and retracted with the help of hemostat on the anterior a bdominal wall. Attention was directed to identifying the anatomical structures. Both ovaries were well identified. There was complete absence of tubes since she was status post salpingectomy. Then at the level of t he pelvic brim, the iliac vessels were identified and the ureter was identified and traced down to th e ureteric tunnel on the right side. This was very evident. On the left side, somewhat difficult to discern given all the endometriosis implants and given the fatty tissue the patient had in the later al wall. However, the ureter was visualized after opening the lateral wall later on. This go started by dissecting the peritoneum lateral to the infundibulopelvic ligament and . This dissection was taken all the way to the round ligament. Then, the round ligament was then ta judy down laterally with good hemostasis. Then, the utero-ovarian ligament was isolated and taken bismark n with the help of the LigaSure. Then, the anterior peritoneum was dissected after dissecting the bl adder adhesions off all the way down to the anterior vaginal wall on the left. Here, all the adhesio ns were systematically taken down with push spread technique, isolating everything, then identifying the uterine vessels. These were skeletonized. The posterior part of the peritoneum had to be dissec ramón as well, which was what had most endometriosis. So only one implant was left on the left lateral wall lateral to even the ureteric tunnel. Rest of the peritoneum with the implant was dissected mark e and included with the uterine specimen. I then went down to the posterior aspect of the VCare cup where I could incise the peritoneum with the help of the LigaSure once this was done and the vessels on the inferior part were also well isolated. The uterine vein was well visualized and the anterior vaginal wall was then dissected. Then after taking down the adhesions sharply with the help of the s cissors on the LigaSure, then the prevesical fat was dissected. Anterior vaginal wall was identified , and this dissection was carried to dissect the bladder off the vaginal wall past the VCare cup. On ce this was done to my satisfaction, then went onto the opposite side, opened up the broad ligament a nd superior to the round ligament. Dissection was used to open up and isolate the round ligament. T hen the LigaSure was used to take this down. Then, utero-ovarian ligament was taken down with the he lp of the same. Then, the ovary was dissected free onto the lateral wall. From here the anterior pe ritoneum was connected with the bladder flap and carefully dissected the bladder off from the right s natalee of the anterior uterine wall. Once this was done, anterior vaginal wall was visualized, and then the dissection of the bladder was then performed to taken down past the VCare cup, probably about 1 to 2 cm inferior to the area of the future colpotomy. Posteriorly, the peritoneum was dissected carefully identifying the ureter on the lateral aspect. Th ere were implants on the uterosacral ligament. These were also carefully dissected and the peritoneu m stripped off the uterosacral. Then, the dissection was carried inferior to isolate the vessels and then superiorly the vessels were also skeletonized. The monopolar hook blade was used to make a sup erficial incision on the loose areolar tissue and the anterior vaginal wall. Once this was done, I w as able to enter the vesicovaginal space and then 2 lateral incisions were made in between the cervix and the uterine vessels. This allowed me to take down the uterine vessels first using the bipolar c autery to cauterize them and then cauterize and ligate with the LigaSure. Once the right uterine ves sels were dissected and isolated, the cardinal ligaments were taken down and dissection carried to th e level of the uterosacral. This was partially detached more on the right side than on the left side . It was easy to take it down to the posterior wall. Once the entire right side was cleared up, att ention was directed to the left side. Here, the bladder dissection was already done. So, vessels we re isolated. The monopolar hook was used to make an incision medial to the vessels and vessels were taken down with the bipolar basket tip and the LigaSure. There was a vessel that retracted most like ly a small vein that was inferior to the vessels. I had to take this down to dissect the vessels off the vaginal cuff further and then held this with a tip of a bipolar [place] to cauterize. Once thi s was done, there was good hemostasis. The rest of the cardinal ligaments were taken down. Circumfe rential colpotomy was performed with a monopolar hook blade and specimen was detached and pulled out through the vagina. The vaginal occluder was placed with a sponge tucked in a glove and then thorough irrigation and suct ion was performed to cauterize the areas of the vaginal wall that were dissected using the [place]. Once hemostasis was secured on the vaginal cuff, there was still slight oozing from the left side, s o angle suture was placed with a 0 Vicryl stitch on the left side and retracting the angle medially w karmen I tied lateral to the angle. Once this was tied, there was excellent hemostasis. I then did an other angle stitch on the right side with a simple 0 Vicryl suture. Then 3 [id number] were renetta rufus in the middle to bring the anterior and posterior vaginal tompkins together without any problem. On ce all the 3 [id number] were placed and they were holding the cuff intact, then 2-0 V-Loc was u sed to closed in a continuous running fashion, the second layer pulling the anterior precervical fasc ia and rectovaginal fascia together and this was closed. I used the 2-0 V-Loc to include the uterosa cral ligaments distally and pulled them up into the vaginal cuff closure on the second layer to creat e the support layer where all the fascial layers of the anterior and posterior tompkins were brought tog ether along with the uterosacrals as a continue them to provide level one support. There was excelle nt support. The uterosacrals were holding very nicely. The point C was -7. All the areas were comp letely hemostatic. No evidence of any electrical, mechanical or physical trauma to the ureters. Cystoscopy was performed after taking out the Nieto. There was excellent jets of urine from both ure teric orifices. No evidence of any trauma or foreign body in the bladder. Bladder was drained. Fol ey was replaced, to be removed at the end of the case. Then, the endometriosis on the left anterior abdominal wall was excised as well and sent as a separate specimen. Excepting the 1 left lateral spe cimen, no other implants were left. Thorough irrigation and suction were performed. All the trocars were removed under direct vision. Evelin stallings stitch on the epiploica was removed as well. Then, I injected with 0.5% Marcaine at fascia and sk in both at the entry and exit on all incisions. The umbilical incision was closed with the help of t agged 0 Vicryl sutures tied to each other and a simple 0 Vicryl suture at the suprapubic fascial site . All the skin incisions were closed with the help of interrupted 4-0 Vicryl sutures and Dermabond w as placed as the patient was allergic to adhesive tape. The Nieto was removed. Instrument, needle, and sponge counts were correct at the end of the case. T he patient tolerated the procedure well. She will be recovered and sent to recovery room. She will be discharged after having good pain control, tolerating diet and ambulating and being able to void. She has a 1-week followup appointment in the office. ANDRE/EVER Voice ID: [id number] Report ID: [id number]
== END 2020-09-17 14:25 | disposition home or self-care (01) ==
LOC: OR 07:02
PROVIDERS: ATTEND Obstetrics & Gynecology
PROC: 0DBW4ZZ Excision of Peritoneum, Percutaneous Endoscopic Approach (ICD-10-PCS; 2020-09-17)
PROC: 0TNB4ZZ Release Bladder, Percutaneous Endoscopic Approach (ICD-10-PCS; 2020-09-17)
PROC: 0USG7ZZ Reposition Vagina, Via Natural or Artificial Opening (ICD-10-PCS; 2020-09-17)
PROC: 0UT94ZZ Resection of Uterus, Percutaneous Endoscopic Approach (ICD-10-PCS; principal; 2020-09-17 08:15)
DX: N92.1 Excessive and frequent menstruation with irregular cycle (principal); N95.1 Menopausal and female climacteric states; K59.00 Constipation, unspecified; F31.9 Bipolar disorder, unspecified; R51.9 Headache, unspecified; E03.9 Hypothyroidism, unspecified; R10.2 Pelvic and perineal pain; N80.3 Endometriosis of pelvic peritoneum; N88.8 Other specified noninflammatory disorders of cervix uteri; D25.9 Leiomyoma of uterus, unspecified; N80.0 Endometriosis of uterus; Z20.822 Contact with and (suspected) exposure to COVID-19
CPT/HCPCS: 58570; 58662; 53899; 57282; 85025; 36415; 86900; 86850; 86901; 88305; 88307; U0002; J2704; J2250; J3010 ×2; J1100; J0690; J7120 ×2; J7030 ×2; J2405; 81003; 81015

== ENCOUNTER 2020-09-20 23:27 | Emergency (ER) | payer BC ==
--- OUTSIDE RECORDS SUMMARY | 2020-09-20 23:30 | XMS REPORT | Continuity of Care Document ---
:1970 Author Organization [facility] t Address [address] [place] [address] Care Team Providers Name Role Phone Thaddeus Santamaria DO Attending Clinician Romero Bueno MD Attending Clinician David Farnsworth MD Attending Clinician Problems This patient has no known problems. Allergies, Adverse Reactions, Alerts This patient has no known allergies or adverse reactions. Medications This patient has no known medications. Procedures This patient has no known procedures. Encounters Start End Encounter Admission Attending Care Care Encounter Source Date/Time Date/Time Type Type Clinicians Facility Department ID 2020-07-11 2020-07-11 Patient OLIVER Santamaria [id number] 00:00:00 00:00:00 Outreach [facility] [id number] Thaddeus [facility] [id number] PAVILLION [id number] 2020-05-03 2020-05-03 Refill Myles [facility] [id number] 00:00:00 00:00:00 Thai Ridley [id number] Emigdio [id number] Profmya [phone] nal 092 [facility] 2020-02-12 2020-02-12 Refill Myles KYDNO [id number] 00:00:00 00:00:00 Thai Ridley [id number] [place] [id number] Professio [phone] nal 092 [facility] 2019-11-07 2019-11-[id number] 14:59:00 23:59:00 Encounter [facility] [id number] [facility] [id number] 2019-10-30 2019-10-30 [id number] 00:00:00 00:00:00 Thai Ridley [id number] [place] [id number] Professio [phone] nal 092 [facility] 2019-10-10 2019-10-[id number] 09:35:15 10:05:04 Visit Thai Ridley [id number] [place] [id number] Professio [phone] [facility] Results This patient has no known results.
[2020-09-21] MEDS ORDERED: MORPHINE 4 MG/ML SYR ONE (05:02)
[2020-09-21] MEDS ORDERED: NA CHLORIDE 0.9% 0 ML ONE (05:03)
[2020-09-21] MEDS ORDERED: ONDANSETRON 4 MG/2 ML VIAL ONE (05:03)
--- NOTE | 2020-09-21 05:06 | EDPHYS ---
Physician Documentation [facility] Name: Britt Aragon Age: 50 yrs Sex: Female : 1970 Arrival Date: 09/20/2020 Time: 23:31 Bed 17 Private MD: Pedro Hammer ED Physician Fede Sousa HPI: 09/21 04:55 This 50 yrs old Female presents to ER via Ambulatory with complaints of mh7 Possible blood clot. 04:55 The patient presents with pain, that is acute. The complaints affect the left calf, mh7 right upper thigh. Context: The problem was sustained at an unknown site, resulted from an unknown cause, the patient can fully bear weight, the patient is able to ambulate, without difficulty, Problem is a result from a previous injury: No. Recent surgery. 04:56 Onset: The symptoms/episode began/occurred yesterday. Modifying factors: The symptoms mh7 are alleviated by nothing. the symptoms are aggravated by nothing. Associated signs and symptoms: Pertinent positives: calf tenderness, Pertinent negatives fever, nausea, numbness, rash, swelling, tingling, vomiting, warmth, weakness. Treatment prior to arrival includes: no previous treatment. Severity of symptoms: At their worst the symptoms were mild, yesterday, in the emergency department the symptoms are unchanged. States that she had a hysterectomy 4 days ago. She noticed a bruise on her right groin and pain to left calf yesterday. Denies any fever, chest pain, SOB, nausea, vomiting, or other complaints.. 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 - Social history:: Smoking status: unknown. ROS: 04:56 Constitutional: Negative for fever, chills, and weight loss, Eyes: Negative for injury, mh7 pain, redness, and discharge, ENT: Negative for injury, pain, and discharge, Neck: Negative for injury, pain, and swelling, Cardiovascular: Negative for chest pain, palpitations, and edema, Respiratory: Negative for shortness of breath, cough, wheezing, and pleuritic chest pain, Abdomen/GI: Negative for abdominal pain, nausea, vomiting, diarrhea, and constipation, Back: Negative for injury and pain, : Negative for injury, bleeding, discharge, and swelling, Neuro: Negative for headache, weakness, numbness, tingling, and seizure, Psych: Negative for depression, anxiety, suicide ideation, homicidal ideation, and hallucinations, Allergy/Immunology: Negative for hives, rash, and allergies, Endocrine: Negative for neck swelling, polydipsia, polyuria, polyphagia, and marked weight changes, Hematologic/Lymphatic: Negative for swollen nodes, abnormal bleeding, and unusual bruising. Exam: 04:56 Constitutional: This is a well developed, well nourished patient who is awake, alert, mh7 and in no acute distress. Head/Face: Normocephalic, atraumatic. Eyes: Pupils equal round and reactive to light, extra-ocular motions intact. Lids and lashes normal. Conjunctiva and sclera are non-icteric and not injected. Cornea within normal limits. Periorbital areas with no swelling, redness, or edema. Neck: Trachea midline, no thyromegaly or masses palpated, and no cervical lymphadenopathy. Supple, full range of motion without nuchal rigidity, or vertebral point tenderness. No Meningismus. Chest/axilla: Normal chest wall appearance and motion. Nontender with no deformity. No lesions are appreciated. Cardiovascular: Regular rate and rhythm with a normal S1 and S2. No gallops, murmurs, or rubs. Normal PMI, no JVD. No pulse deficits. Respiratory: Lungs have equal breath sounds bilaterally, clear to auscultation and percussion. No rales, rhonchi or wheezes noted. No increased work of breathing, no retractions or nasal flaring. 04:56 Back: No spinal tenderness. No costovertebral tenderness. Full range of motion. 04:56 Neuro: Awake and alert, GCS 15, oriented to person, place, time, and situation. Cranial nerves II-XII grossly intact. Motor strength 5/5 in all extremities. Sensory grossly intact. Cerebellar exam normal. Normal gait. Psych: Awake, alert, with orientation to person, place and time. Behavior, mood, and affect are within normal limits. 04:56 Abdomen/GI: Inspection: scar(s), are noted in the suprapubic area, right lower quadrant and left lower quadrant, Bowel sounds: normal, in all quadrants, Palpation: abdomen is soft and non-tender, in all quadrants, Rectal exam: the exam is deferred, because of patient request, Indicators: McBurney's point is not tender, Gonzalez's sign is negative, Rovsing's sign is negative, Obturator sign is negative, Psoas sign is negative, Liver: no appreciated palpable abnormalities, Hernia: not appreciated. 04:56 Musculoskeletal/extremity: Extremities: noted in the right upper thigh: ecchymosis, noted in the left calf: tenderness, mild, ROM: intact in all extremities, Circulation is intact in all extremities. Sensation intact. Compartment Syndrome exam of affected extremity: is normal. no numbness, no tingling, no sensation deficit, no palor, no weak pulses, Joints: All joints appear normal with full range of motion. Weight bearing: able to fully bear weight, without difficulty, Tendon exam: specific tendon testing normal through active and passive range of motion DVT Exam: no swelling, negative Homans' sign noted on exam, no appreciated bluish discoloration, no erythema, no increased warmth, Calves: are non-tender, have equal circumference. 04:56 Skin: small area of ecchymosis right upper medial thigh. Vital Signs: 01:03 BP 137 / 77; Pulse 85; Resp 16; Temp 97.9; Pulse Ox 100% on R/A; Weight 87.09 kg; iw Height 4 ft. 11 in. (149.86 cm); Pain 3/10; 03:26 BP 132 / 72; Pulse 75; Resp 18; Pulse Ox 100% ; Pain 6/10; ad1 04:32 BP 131 / 75; Pulse 73; Resp 18; Pulse Ox 100% ; ad1 05:04 BP 118 / 69; Pulse 78; Resp 18; Pulse Ox 98% on R/A; ea 01:03 Body Mass Index 38.78 (87.09 kg, 149.86 cm) iw MDM: 05:03 Differential diagnosis: contusion, abrasion, DVT, musculoskeletal pain. Data reviewed: [facility] vital signs, nurses notes, old medical records, radiologic studies, ultrasound. Data interpreted: Pulse oximetry: on room air is 100 %. Interpretation: normal. Counseling: I had a detailed discussion with the patient and/or guardian regarding: the historical points, exam findings, and any diagnostic results supporting the discharge/admit diagnosis, radiology results, the need for outpatient follow up, to return to the emergency department if symptoms worsen or persist or if there are any questions or concerns that arise at home. Response to treatment: the patient's symptoms have markedly improved after treatment. 05:05 Patient medically screened. mh7 09/21 04:15 Order name: US Extremity Venous W Compression Hussain 7 Administered Medications: No medications were administered Disposition: 09/21/20 05:05 Discharged to Home. Impression: Musculoskeletal Pain, Lower Extremity. - Condition is Stable. - Discharge Instructions: Musculoskeletal Pain. - Medication Reconciliation Form, Thank You Letter, Antibiotic Education, Prescription Opioid Use form. - Follow up: Private Physician; When: 1 - 2 days; Reason: Worsening of condition, Recheck today's complaints, Continuance of care, Re-evaluation by your physician. - Problem is new. - Symptoms have improved. Signatures: Dispatcher [employer] EDMoraima Holcomb RN RN iw Antunez, Elena, RN RN ea Holmes, Maurice, MD MD mh7 Corrections: (The following items were deleted from the chart) 05:30 05:05 09/21/2020 05:05 Discharged to Home. Impression: Musculoskeletal Pain, Lower iw Extremity. Condition is Stable. Forms are Medication Reconciliation Form, Thank You Letter, Antibiotic Education, Prescription Opioid Use. Follow up: Private Physician; When: 1 - 2 days; Reason: Worsening of condition, Recheck today's complaints, Continuance of care, Re-evaluation by your physician. Problem is new. Symptoms have improved. mh7
--- NOTE | 2020-09-21 05:06 | ER ---
Nurse's Notes [facility] Name: Britt Aragon Age: 50 yrs Sex: Female : 1970 Arrival Date: 09/20/2020 Time: 23:31 Bed 17 Private MD: Pedro Hammer Diagnosis: Musculoskeletal Pain, Lower Extremity Presentation: 09/21 01:03 Chief complaint: Patient states: had hysterectomy on Wednesday with Dr. Desir , iw noticed a bruise in right groin area, and was worried she might have a blood clot , denies pain in right leg , states she has pain at surgical site . Coronavirus screen: At this time, the client does not indicate any symptoms associated with coronavirus-19. Ebola Screen: Patient negative for fever greater than or equal to 101.5 degrees Fahrenheit, and additional compatible Ebola Virus Disease symptoms Patient denies exposure to infectious person. Patient denies travel to an Ebola-affected area in the 21 days before illness onset. No symptoms or risks identified at this time. Initial Sepsis Screen: Does the patient meet any 2 criteria? No. Patient's initial sepsis screen is negative. Does the patient have a suspected source of infection? No. Patient's initial sepsis screen is negative. Risk Assessment: Do you want to hurt yourself or someone else? Patient reports no desire to harm self or others. Onset of symptoms was September 21, 2020. 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 - Social history:: Smoking status: unknown. Screenin:03 Abuse screen: Denies threats or abuse. Nutritional screening: No deficits noted. ea Tuberculosis screening: No symptoms or risk factors identified. Fall Risk None identified. Assessment: 03:13 General: Appears in no apparent distress. Behavior is calm, cooperative, appropriate ad1 for age. Pain: Complains of pain in abdomen Pain currently is 6 out of 10 on a pain scale. Cardiovascular: Heart tones S1 S2 Pulses are all present. Cardiovascular: No deficits noted. Denies chest pain. Respiratory: No deficits noted. Airway is patent Trachea midline Respiratory effort is even, unlabored, Respiratory pattern is regular, Respiratory: Breath sounds are diminished bilaterally. GI: Reports pain to umbilical incision site. Incision sites X5 approximated. reports no BM since Wednesday. Derm: bruise noted to R upper leg close to groin area. 04:30 Reassessment: Patient appears in no apparent distress at this time. No changes from ad1 previously documented assessment. Patient is alert, oriented x 3, equal unlabored respirations, skin warm/dry/pink. ultrasound arrived at this time. Vital Signs: 01:03 BP 137 / 77; Pulse 85; Resp 16; Temp 97.9; Pulse Ox 100% on R/A; Weight 87.09 kg; iw Height 4 ft. 11 in. (149.86 cm); Pain 3/10; 03:26 BP 132 / 72; Pulse 75; Resp 18; Pulse Ox 100% ; Pain 6/10; ad1 04:32 BP 131 / 75; Pulse 73; Resp 18; Pulse Ox 100% ; ad1 05:04 BP 118 / 69; Pulse 78; Resp 18; Pulse Ox 98% on R/A; ea 01:03 Body Mass Index 38.78 (87.09 kg, 149.86 cm) iw ED Course: 09/20 23:31 Patient arrived in ED. es 23:31 Pedro Hammer MD is Private Physician. es 09/21 01:06 Triage completed. iw 03:01 Fede Sousa MD is Attending Physician. [facility] 04:43 US Extremity Venous W Compression Hussain In Process Unspecified. EDMS 05:03 Bed in low position. ea 05:04 Arm band placed on right wrist. ea 05:24 No provider procedures requiring assistance completed. Patient did not have IV access ea during this emergency room visit. 05:29 Moraima Yan, RN is Primary Nurse. iw Administered Medications: No medications were administered Outcome: 05:05 Discharge ordered by . 7 05:29 Discharged to home ambulatory. iw 05:29 Condition: good 05:29 Discharge instructions given to patient, Instructed on discharge instructions, follow up and referral plans. Demonstrated understanding of instructions, follow-up care. 05:30 Patient left the ED. iw Signatures: Dispatcher [employer] Lorraine Scherer Irene, RN RN iw Mehnaz Latham RN RN ad1 Evette Flores RN Fede Fernandez ea, MD MD [id number] Corrections: (The following items were deleted from the chart) 03:25 03:13 Cardiovascular: No deficits noted. Denies chest pain, ad1 ad1
[2020-09-21 05:41] VITALS: TEMP 97.9
[2020-09-21 05:57] VITALS: BP 118/69; O2SAT 98
--- NOTE | 2020-09-21 08:19 | RAD REPORT ---
EXAM DESCRIPTION: USExtrem Venous W Compress Bil09/21/2020 4:43 am CLINICAL HISTORY: Leg swelling and bruise COMPARISON: none FINDINGS: The common femoral, superficial femoral, popliteal and posterior tibial veins bilaterally are compressible and demonstrate augmentation. Doppler demonstrates good flow. A hematoma is not visualized IMPRESSION: No evidence of deep venous thrombosis involving either lower extremity.
== END 2020-09-21 05:30 | disposition home or self-care (01) ==
LOC: ER 23:27
DX: M79.662 Pain in left lower leg (principal); M79.18 Myalgia, other site; M79.651 Pain in right thigh
CPT/HCPCS: 93970; 99283; J2405; J7030

== ENCOUNTER 2020-11-14 06:30 | Day surgery (SDC) | payer BC ==
[2020-11-11 15:00] LABS: Absolute Lymphocytes (CBC) 1.6 K/uL (0.7-4.9); Basophils % 0.9 % (0-1.3); Hematocrit 42.6 % (36.0-45.0); Lymphocytes % 26.7 % (15.3-44.8); MPV 8.4 fL (7.6-11.3); RBC Red Blood Cell Count 4.81 M/uL (3.86-4.86)
[2020-11-14] MEDS ORDERED: Ringers Lactate 1,000 ML IV ONE ×2 (06:59→09:06)
[2020-11-14] MEDS ORDERED: CEFAZOLIN/SWI 2gm 2 GM/20 ML SYR ONE (07:00)
[2020-11-14] MEDS ORDERED: NA CHLORIDE 0.9% 100 ML IV ONE (07:21)
[2020-11-14 07:22] LABS: Urine Appearance CLEAR (Clear); Urine Bilirubin NEGATIVE (Negative); Urine Blood NEGATIVE (Negative); Urine Color YELLOW (Yellow); Urine Glucose NEGATIVE (Negative); Urine Microscopic Reflex NO UMIC; Urine Protein NEGATIVE (Negative); Urine pH 5.5 (5.0-7.0)
[2020-11-14] MEDS ORDERED: VASOPRESSIN 20 UNIT/ML VIAL ONE (07:22)
[2020-11-14] MEDS ORDERED: LIDOCAINE 1% W/EPI 1:100,000 MDV 20 ML VIAL ONE (07:22)
[2020-11-14] MEDS ORDERED: CEFAZOLIN/SWI 1gm 1 GM/10 ML SYR ONE (07:22)
[2020-11-14] MEDS ORDERED: FENTANYL CITR 100 MCG/2 ML ONE ×2 (07:25→08:43)
[2020-11-14] MEDS ORDERED: MIDAZOLAM HCL 2 MG/2 ML INJ ONE (07:25)
[2020-11-14] MEDS ORDERED: LIDOCAINE 1% MPF 5 ML VIAL ONE (07:25)
[2020-11-14] MEDS ORDERED: ONDANSETRON 4 MG/2 ML VIAL ONE (07:25)
[2020-11-14] MEDS ORDERED: propofoL 200 MG/20 ML VIAL IV ONE (07:25)
[2020-11-14] MEDS ORDERED: dexAMETHasone 10 MG/ML VIAL ONE (07:25)
[2020-11-14] MEDS ORDERED: CELECOXIB 100 MG CAPSULE ONE (07:32)
[2020-11-14] MEDS ORDERED: ACETAMINOPHEN 500 MG TAB ONE (07:32)
[2020-11-14] MEDS ORDERED: KETOROLAC 30 MG/ML INJ ONE (09:02)
[2020-11-14] MEDS ORDERED: BUPIVACAINE 0.5% PF 10 ML VIAL ONE (09:02)
[2020-11-14 10:24] VITALS: BP 126/66
[2020-11-14] MEDS ORDERED: HYDROCODONE/APAP 5/325 MG TAB PO ONE (10:40)
--- NOTE | 2020-11-14 10:49 | OP ---
Date of Procedure: 11/14/2020 Surgeon: Malinda Desir MD Silk Printer: Vicky Ty. Preoperative Diagnosis: Stress urinary incontinence. Postoperative Diagnosis: Stress urinary incontinence and suburethral vaginal epithelial inclusion cy st. Procedures Performed: 1.Mid urethral sling (TVTO), cystoscopy. 2.Needle aspiration of the inclusion cyst and culture of the fluid. Anesthesia: General with LMA. Estimated Blood Loss: Minimal. Specimens: Culture of the inclusion cyst. Complications: No complications. Drains: Nieto catheter. Condition: Patient's condition stable. Findings: Mid urethral area on examination under anesthesia revealed a slight abnormality suspicious for an inclusion cyst. This was aspirated with a needle. Drainage was mucoid and it was sent for c ultures. Very minimal, maybe less than 1 cc was drained. There was no evidence of any inflammation or induration in the area. So, proceeded with placement of the sling. Cystoscopy was negative. No evidence of any foreign body or mass in the bladder and on ureteroscopy with a 0 degree lens. There was no evidence of any diverticula or an opening in the posterior wall of the urethra in the area of the cyst. Indications: The patient is a 50-year-old female presented with increasing stress urinary incontinen ce much worse after her hysterectomy, most likely from the apical suspension during the procedure. S he was asymptomatic in the past and definitely became more symptomatic after so she was consented for sling after discussing all the alternatives including urethral bulking or just pelvic floor exercise s. This was something she could not cope with. Description Of Procedure: She was consented and brought to the OR. Her questions and answers were d one at this morning with her in the room preoperatively. She was then taken back to the OR, placed in supine fashion on the operating table. 2 g of Ancef were given. She was placed in dorsal lithotomy position. Pelvic exam was performed. Lower abdomen, vulva, vagina, and perineum were prep ped and draped in a sterile fashion. Nieto was placed to drain the bladder. Then, the suburethral m ass was addressed with a 21-gauge needle. Then from the tip of the needle as well as from the site o f penetration of the needle, the aspirate was taken. Aerobic and anaerobic cultures were sent. Did n ot appear to be suspicious for an abscess or diverticula, so proceeded on with placing the sling. A cystoscopy was performed after removing the Nieto just to make sure that there was no opening into the urethra and once this was ensured and was negative, then replaced the Nieto and started the sling . Mid urethral area slightly proximal to the inclusion cyst was injected with dilute vasopressin 20 uni ts and 20 cc of normal saline. About 10 cc was injected in this area. Then, 1 cm incision made on t he vaginal epithelium. Dissection was carried to the ipsilateral obturator space at a 45-degree angl e to the horizontal and vertical planes, hugging the inferior pubic ramus once the obturator membrane was perforated. The scissors were opened to expand the tract. Similar dissection was performed on the left side. Then, the kit was opened, wing guide was placed, spike was passed hugging the inferio r pubic ramus exiting 2 cm lateral to the groin fold a cm above the horizontal line dropped at the le guy of the external urethral meatus. The plastic dilator was retrieved. The mesh and the sheaths we re clamped with a Mirta and dilator cut out. Similar pass was taken on the opposite side. No eviden ce of any penetration through the foot, vaginal fornix on either sides, made sure that they were plac ed in a manner that they were not too superficial or palpable. Once both sides were placed, the mesh was then placed. Tensioning was performed with Metzenbaum scis sors in the mid urethral area, making sure that this did not slip pass to the UVJ as the incision was made slightly more distal than what was optimal the usual sling. Once the plastic sheaths were pulled out the mesh was trimmed, flushed with the skin. Skin glue appl ied for closure of the incision. Thorough irrigation was performed in the vaginal area of the sling and the entire cyst area with antibiotic solution. Then, closure of the vaginal epithelial incision with a 3-0 Vicryl in a horizontal mattress fashion was done with excellent closure. Cystoscopy was p erformed again after removing the Nieto. No evidence of any trauma to the bladder. No evidence of a ny tumors. The entire bladder was visualized with a 30-degree lens. The trigone, the area above the trigone, lateral aspects and dome negative. She will have a voiding trial. She was recovered and taken to PACU in stable condition. She will ribeiro ve a voiding trial 2 hours postop and if she passes a voiding trial, she will be discharged home with out a catheter. If she fails, she will have a 2 day Nieto catheter and have a repeat trial. We will send her home on Keflex 250 q.i.d. for 7 days. She has a 1-week followup appointment. SHARON Voice ID: [id number] Report ID: [id number]
[2020-11-14] MEDS ORDERED: HYDROCODONE/APAP 5/325 MG TAB ONE (11:02)
[2020-11-14 13:25] VITALS: TEMP 97.5; O2SAT 98
== END 2020-11-14 12:10 | disposition home health service (06) ==
LOC: OR 06:30
PROVIDERS: ATTEND Obstetrics & Gynecology
PROC: 0T9 Urinary System, Drainage (ICD-10-PCS; 2020-11-14)
PROC: 0TSD4ZZ Reposition Urethra, Percutaneous Endoscopic Approach (ICD-10-PCS; principal; 2020-11-14 07:30)
DX: N39.3 Stress incontinence (female) (male) (principal); N92.1 Excessive and frequent menstruation with irregular cycle; K59.00 Constipation, unspecified; F31.9 Bipolar disorder, unspecified; E03.9 Hypothyroidism, unspecified; E05.90 Thyrotoxicosis, unspecified without thyrotoxic crisis or storm; Z20.822 Contact with and (suspected) exposure to COVID-19
CPT/HCPCS: 57288; 10021; 87070; 85025; 36415; 86900; 86850; 87205; 86901; 87075; 81003; U0002; J2704; J2250; J3010 ×2; J1100; J0690 ×2; J7120 ×2; J2405

== ENCOUNTER 2024-05-13 19:35 | Inpatient (IN) | payer BC, OTHER ==
--- OUTSIDE RECORDS SUMMARY | 2024-05-13 19:39 | XMS REPORT | Continuity of Care Document ---
Author Name Unknown Address [address] [facility] [address] [place] [address] [facility] Address [address] [facility] [address] [place] [address] Care Team Providers Care Nephrology Social Worker Name Role Phone Pedro Hammer Jr. Primary Care Physician + [phone] ROSALVA PARK Attending Clinician Unav ailable [email or web address]_S Attending Clinician Howard Figueroa DO Attending Clinician [phone] Thai Bueno MD Attending Clinician [phone] Aleisha Farnsworth MD Attending Clinician Unav ailable Doctor Unassigned, [place] Attending Clinician U navailALEISHA Novak Attending Clinician Unavail THAI Pollard Attending Clinician Unavail THAI Pollard Attending Clinician Unavail Dmitry Galarza MD Attending Clinician + [phone] Edith Merrill MD Attending Clinician [phone] ROSALVA PARK Admitting Clinician Unav ailable [email or web address]_S Admitting Clinician Unavaila ble Garfield ANGELES, Edith Admitting Clinician [phone] Payers Payer Name Policy Type Policy Number Effective Date Expirati on Date Source Problems Condition Name Condition Details Condition Category Status Onset Date Resolution Date Last Treatment Date Treating Clinician Comments Source Abnormal mammogram Abnormal mammogram Disease Active 2018-04 00:00: 00 Overview: Formattin g of this note might be different from the original. - screening mammogram revealed a normal right breast and a possible cyst of the left breast. 03/02/19 - left breast US - Numerous cystic lesions were detected ranging from 4.1 mm at 10:00 to the largest lesion of 12 mm at 10 in the deep portion of the breast. Additiona l cystic lesions are seen between 9 and 3:00 in the entire left upper breast.In the lateral periphera l region, an incidenta l finding of 6 mm lymph node. CONCLUSIO NS: No worrisome solid masses detected. Images were reviewed and the findings were discussed with the patient. Annual bilateral mammograp hy evaluatio n is appropria te. ACR classific ation: Category II. [facility] Menopause present Menopause present Disease Active 2018-04 00:00: 00 Overview: Formattin g of this note might be different from the original. 02/10/19 - FSH 45, E2 <20 c/w menopause 03/22/19 - FSH 18.9, E2 40 [facility] Elevated transamina se level Elevated transamina se level Disease Active 2018-04 00:00: 00 Overview: Formattin g of this note might be different from the original. 02/10/19 - AST 43, ALT 64. Patient will be discussin g with GI. [facility] Screening for colorectal cancer Screening for colorectal cancer Disease Active 11-11 00:00: 00 Overview: Formattin g of this note might be different from the original. Added automatic ally from request for surgery [id number] [facility] Stricture of sigmoid colon Stricture of sigmoid colon Disease Active 10-19 00:00: 00 [facility] Encounter for female sterilizat ion procedure Encounter for female sterilizat ion procedure Disease Active 10-02 00:00: 00 Overview: 09/27/18 - s/p laparosco pic b/l salpingec rashid. Histology benign [facility] Encounter for female sterilizat ion procedure Encounter for female sterilizat ion procedure Disease Active 10-02 00:00: 00 Overview: Formattin g of this note might be different from the original. 09/27/18 - s/p laparosco pic b/l salpingec rashid. Histology benign [facility] Acute cystitis without hematuria Acute cystitis without hematuria Disease Active 09-25 00:00: 00 Overview: Formattin g of this note might be different from the original. 09/21/18 - Urine culture > 100K. E. Coli. S/p Rocephin and Macrobid. 02/11/19 - Urine culture revealed 10,000-10 0,000 CFU/mL Streptoco ccus anginosus s/p Amoxicill in. 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 09/07/18 - hysterosc opy revealed thickened endometri al tissue. EMB benign. [facility] Postcoital bleeding Postcoital bleeding Disease Active 08-09 00:00: 00 [facility] Abnormal uterine bleeding Abnormal uterine bleeding Disease Active 08-09 00:00: 00 Overview: Formattin g of this note might be different from the original. 08/09/18 - oligomeno rrhea. Pelvic US. RTC for a hysterosc opy with EMB. - The uterus is normal in size, shape and echotextu re. The uterus measures 9.9 x 5.2 x 6.6 cm. An area of hypoechoi c appearanc e is seen in the lower uterine segment likely represent ing scar from previous . Also noted is a hypoechoi c relativel y well-circ umscribed area adjacent to the scar tissue. This measures 2.3 x2.0 x 1.8 cm in size and is likely a fibroid. The endometri al stripe is normal and measures 7.3 mm. Both ovaries are normal. There is a small hypoechoi c lesion is present in the right ovary with multiple thin septation s, measuring 1.7 x 1.4 x 1.0 cm and is likely a hemorrhag ic cyst. - s/p endometri al ablation and b/l salpingec rashid. Histology benign [facility] Family history of breast cancer Family history of breast cancer Disease Active 08-09 00:00: 00 Overview: Formattin g of this note might be different from the original. FH of maternal aunt and grandmoth er with breast cancer [facility] Allergies, Adverse Reactions, Alerts Allergy Name Allergy Type Status Severity Reaction(s) Onset Date Inactive Date Treating Clinician Comments Source Tegaderm Dressing Propensi ty to adverse reaction s Active Itching 09-27 00:00: 00 [facility] TEGADERM DRESSING DRUG INGREDI Active ITCHING 09-27 00:00: 00 [facility] Progeste declan Propensi ty to adverse reaction s Active Unknown - See comments 09-07 00:00: 00 Becomes angry [facility] PROGESTE DECLAN DRUG INGREDI Active Unknown-Cmnt 09-07 00:00: 00 [facility] Social History Social Habit Start Date Stop Date Quantity Comments Source Exposure to SARS-CoV-2 (event) Not sure [facility] of Social function 2019-11-30 00:00:00 2019-11-30 00:00:00 [facility] Alcohol intake 2019-03-22 00:00:00 2019-03-22 00:00:00 Current drinker of alcohol (finding) [facility] Tobacco use and exposure 2018-12-19 00:00:00 2018-12-19 00:00:00 User of smokeless tobacco [facility] Tobacco Comment 2018-08-09 00:00:00 2018-08-09 00:00:00 currently vaping [facility] Alcohol Comment 2018-08-09 00:00:00 2018-08-09 00:00:00 rare [facility] History of tobacco use 2011-12-09 00:00:00 Cigarette Smoker [facility] Sex Assigned At 1970 00:00:00 1970 00:00:00 [facility] Smoking Status Start Date Stop Date Source Ex-smoker 2018-12-19 00:00:00 2018-12-19 00[facility]00[facility]00 [facility] Current some day smoker 2018-12-13 00:00:00 [facility] Medications Ordered Medication Name Filled Medication Name Start Date Stop Date Current Medication? Ordering Clinician Indication Dosage Frequency Signature (SIG) Comments Components Source gabapentin 300 mg capsule 05-06 00:00: 00 Yes TAKE 2 CAPSULES BY MOUTH THREE TIMES DAILY [facility] gabapentin 300 mg capsule 2019-04 00:00: 00 05-06 00:00 :00 No TAKE 2 CAPSULES BY MOUTH THREE TIMES DAILY [facility] gadoteridol (PROHANCE-2 0 mL) injection 16.32 mL 11-06 21:30: 00 11-06 21:20 :00 No .2mL/kg 16.32 mL (0.2 mL/kg ?81.6 kg), Intravenou s, ONCE, 1 dose, Wed11/07/19 at 1630, Routine [facility] LORazepam (ATIVAN) tablet 2 mg 11-06 21:15: 00 11-06 20:15 :00 No 2mg 2 mg, Oral, ONCE, 1 dose, Wed11/07/19 at 1615, Routine [facility] buPROPion SR (WELLBUTRIN SR) 150 mg SR tablet 11-06 20:13: 17 Yes 150mg Take 150 mg by mouth 2 (two) times daily. [facility] Quetiapine 50 mg tablet 11-06 20:13: 17 Yes Take by mouth. [facility] melatonin 10 mg TbDL 11-06 20:09: 30 Yes Take by mouth. [facility] buPROPion SR (WELLBUTRIN SR) 150 mg SR tablet 11-06 15:13: 17 Yes 150mg Take 150 mg by mouth 2 (two) times daily. [facility] Quetiapine 50 mg tablet 11-06 15:13: 17 Yes Take by mouth. [facility] melatonin 10 mg TbDL 11-06 15:09: 30 Yes Take by mouth. [facility] gabapentin 300 mg capsule 10-29 00:00: 00 02-11 00:00 :00 No TAKE 2 CAPSULES BY MOUTH THREE TIMES DAILY [facility] GABAPENTIN 300 mg capsule -16 00:00: 00 10-29 00:00 :00 No TAKE 2 CAPSULES BY MOUTH THREE TIMES DAILY [facility] conj estrogens-b azedoxifene (DUAVEE) 0.45-20 mg Tab 2018-0413 00:00: 00 Yes [id number] 1{tbl} Take 1 tablet by mouth daily. [facility] gabapentin 300 mg capsule 2018-0418 00:00: 00 07-09 00:00 :00 No 600mg Take 2 capsules by mouth 3 (three) times daily. [facility] melatonin 10 mg TbDL 2018-0418 14:35: 31 Yes Take by mouth. [facility] Ibuprofen 200 mg capsule 2018-04 018 14:35: 00 Yes Take by mouth. [facility] Ibuprofen 200 mg capsule 2018-04 018 09:35: 00 Yes Take by mouth. [facility] LORazepam (ATIVAN) tablet 2 mg 904 19:15: 00 12-28 18:07 :00 No 2mg 2 mg, Oral, ONCE, 1 dose, 12/28/18 at 1415, Routine [facility] Ibuprofen 200 mg capsule 12-19 16:09: 51 Yes Take by mouth. [facility] butalbital- acetaminoph en 50-300 mg Cap 12-19 16:09: 51 Yes Take by mouth. [facility] gabapentin 300 mg capsule 12-19 00:00: 00 Yes 300mg Take 1 capsule by mouth 3 (three) times daily. [facility] levocetiriz ine dihydrochlo ride (XYZAL ORAL) 12-13 19:09: 18 Yes Take by mouth. [facility] rizatriptan 10 mg tablet 12-13 19:08: 51 12-13 00:00 :00 No 10mg Take 10 mg by mouth as needed for Migraine. May repeat in 2 hours if needed [facility] diphenhydrA MINE (BENADRYL ALLERGY) 25 mg tablet 12-13 19:08: 17 12-13 00:00 :00 No 25mg Take 25 mg by mouth every evening. [facility] levocetiriz ine dihydrochlo ride (XYZAL ORAL) 12-13 14:09: 18 Yes Take by mouth. [facility] estradiol 2 mg tablet 12-09 00:00: 00 Yes 1 TID x 3 days, 1 BID x 3 days, and then 1 daily thereafter [facility] amitriptyli ne 10 mg tablet 12-04 00:00: 00 Yes [facility] diphenhydrA MINE (BENADRYL ALLERGY) 25 mg tablet 11-29 14:55: 38 Yes 25mg Take 25 mg by mouth every evening. [facility] rizatriptan 10 mg tablet 11-29 14:55: 38 Yes 10mg Take 10 mg by mouth as needed for Migraine. May repeat in 2 hours if needed [facility] levocetiriz ine dihydrochlo ride (XYZAL ORAL) 11-29 14:55: 38 Yes Take by mouth. [facility] water for irrigation irrigation solution 11-29 13:44: 00 Yes PRN, Starting Wed11/29/18 at 0844, Until Discontinu ed, Routine, Intra-op [facility] simethicone (GAS RELIEF) 40 mg/0.6 mL drops 11-29 12:33: 00 Yes PRN, Starting Wed11/29/18 at 0733, Until Discontinu ed, Routine, Intra-op [facility] lactated ringers IV infusion 1,000 mL 11-29 12:00: 00 11-29 12:09 :00 No 1000mL at 20 mL/hr, 1,000 mL, IV Infusion, ONCE, 1 dose, Wed11/29/18 at 0700, Routine, DSU Pre-op [facility] montelukast 10 mg tablet 11-24 00:00: 00 Yes [facility] peg-electro lyte soln 236-22.74-6 .74 -5.86 gram solution 11-11 00:00: 00 12-13 00:00 :00 No [id number] 4000mL Take 4,000 mL by mouth SEE-INSTRU CTIONS. Take as directed [facility] ferrous sulfate 325 mg (65 mg iron) tablet 07-13 00:00: 00 Yes TK 1 T PO D [facility] traZODONE 50 mg tablet 07-13 00:00: 00 Yes [facility] topiramate 50 mg tablet 07-13 00:00: 00 12-13 00:00 :00 No 2 (two) times daily. [facility] topiramate 25 mg tablet 218 00:00: 00 12-13 00:00 :00 No [facility] Vital Signs Vital Name Observation Time Observation Value Comments S tawanna Systolic blood pressure 2019-11-07 20:11:00 155 mm[Hg] [facility] Diastolic blood pressure 2019-11-07 20:11:00 95 mm[Hg] [facility] Heart rate 2019-11-07 20:11:00 107 /min [facility] Body temperature 2019-11-07 20:11:00 37.28 Donna [facility] Respiratory rate 2019-11-07 20:11:00 18 /min [facility] Body height 2019-11-07 20:11:00 149.9 cm [facility] Body weight 2019-11-07 20:11:00 81.647 kg [facility] BMI 2019-11-07 20:11:00 36.36 kg/m2 [facility] Oxygen saturation in Arterial blood by Pulse oximetry 2019-11-07 20:11:00 97 /min [facility] Systolic blood pressure 2019-11-07 20:11:00 155 mm[Hg] [facility] Diastolic blood pressure 2019-11-07 20:11:00 95 mm[Hg] [facility] Heart rate 2019-11-07 20:11:00 107 /min [facility] Body temperature 2019-11-07 20:11:00 37.28 Donna [facility] Respiratory rate 2019-11-07 20:11:00 18 /min [facility] Body height 2019-11-07 20:11:00 149.9 cm [facility] Body weight 2019-11-07 20:11:00 81.647 kg [facility] BMI 2019-11-07 20:11:00 36.36 kg/m2 [facility] Oxygen saturation in Arterial blood by Pulse oximetry 2019-11-07 20:11:00 97 /min [facility] Body weight 2019-10-10 15:17:00 82.101 kg [facility] BMI 2019-10-10 15:17:00 36.56 kg/m2 [facility] Body weight 2019-10-10 15:17:00 82.101 kg [facility] BMI 2019-10-10 15:17:00 36.56 kg/m2 [facility] Systolic blood pressure 2019-01-10 14:55:00 115 mm[Hg] [facility] Diastolic blood pressure 2019-01-10 14:55:00 73 mm[Hg] [facility] Heart rate 2019-01-10 14:55:00 82 /min [facility] Body temperature 2019-01-10 14:55:00 36.5 Donna [facility] Respiratory rate 2019-01-10 14:55:00 18 /min [facility] Body weight 2019-01-10 14:55:00 75.297 kg [facility] BMI 2019-01-10 14:55:00 33.53 kg/m2 [facility] Systolic blood pressure 2018-12-28 18:02:00 122 mm[Hg] [facility] Diastolic blood pressure 2018-12-28 18:02:00 78 mm[Hg] [facility] Heart rate 2018-12-28 18:02:00 93 /min [facility] Respiratory rate 2018-12-28 18:02:00 18 /min [facility] Body weight 2018-12-28 18:02:00 75.4 kg [facility] BMI 2018-12-28 18:02:00 33.57 kg/m2 [facility] Oxygen saturation in Arterial blood by Pulse oximetry 2018-12-28 18:02:00 99 /min [facility] Systolic blood pressure 2018-12-19 16:05:00 116 mm[Hg] [facility] Diastolic blood pressure 2018-12-19 16:05:00 71 mm[Hg] [facility] Heart rate 2018-12-19 16:05:00 75 /min [facility] Body temperature 2018-12-19 16:05:00 36.94 Donna [facility] Respiratory rate 2018-12-19 16:05:00 16 /min [facility] Body height 2018-12-19 16:05:00 149.9 cm [facility] Body weight 2018-12-19 16:05:00 75.411 kg [facility] BMI 2018-12-19 16:05:00 33.58 kg/m2 [facility] Systolic blood pressure 2018-12-13 19:06:00 130 mm[Hg] [facility] Diastolic blood pressure 2018-12-13 19:06:00 80 mm[Hg] [facility] Heart rate 2018-12-13 19:06:00 83 /min [facility] Body temperature 2018-12-13 19:06:00 36.83 Donna [facility] Respiratory rate 2018-12-13 19:06:00 18 /min [facility] Body weight 2018-12-13 19:06:00 74.753 kg [facility] BMI 2018-12-13 19:06:00 33.29 kg/m2 [facility] Systolic blood pressure 2018-11-29 14:35:00 132 mm[Hg] [facility] Diastolic blood pressure 2018-11-29 14:35:00 61 mm[Hg] [facility] Heart rate 2018-11-29 14:35:00 66 /min [facility] Body temperature 2018-11-29 14:35:00 36.78 Donna [facility] Respiratory rate 2018-11-29 14:35:00 20 /min [facility] Oxygen saturation in Arterial blood by Pulse oximetry 2018-11-29 14:35:00 98 /min [facility] Body height 2018-11-24 15:00:00 149.9 cm [facility] Body weight 2018-11-24 15:00:00 71.668 kg [facility] BMI 2018-11-24 15:00:00 31.91 kg/m2 [facility] Procedures Procedure Date / Time Performed Performing Clinician Source MR BRAIN W WO CONTRAST 2019-11-07 21:42:55 Jackie Farnsworth [facility] ASSIGNMENT OF BENEFITS 2019-10-10 14:35:12 Docto r Unassigned, [place] [facility] MR BRAIN WO CONTRAST 2018-12-28 19:26:[address] Gene [facility] COLONOSCOPY (ENDO) 2018-11-29 13:04:52 Pedro Hammer [facility] DAY SURGERY - ADC 2018-11-29 05:01:00 Doctor Roberta ssigned, [place] [facility] REFERRAL- REQUEST/RESPONSE 2018-11-14 05:01:00 Doctor Unassigned, [place] [facility] DISCLOSURE AND CONSENT, MEDICAL AND SURGICAL PROCEDURES 2018-11-08 05:01:00 Doctor Unassigned, [place] [facility] Encounters Start Date/Time End Date/Time Encounter Type Admission Type Attending [facility] Care Department Encounter ID Source 2024-01-17 08:32:00 2024-01-18 12:08:00 Outpatient ROSALVA PARK [facility] [id number] [facility] 2024-01-06 09:22:00 2024-01-06 23:59:00 Outpatient ROSALVA PARK [facility] [id number] [facility] 2023-08-16 08:32:00 2023-08-17 12:38:00 Outpatient ROSALVA PARK [facility] [id number] [facility] 2023-08-07 12:00:00 2023-08-07 23:59:00 Outpatient ROSALVA PARK MH [facility] [id number] [facility] 2023-02-22 00:00:00 2023-02-22 00:00:00 Outpatient GC_GCBZW_Ka diyala_S [facility] [id number] [facility] 2020-07-11 00:00:00 2020-07-11 00:00:00 Patient Outreach Rosalio Howard Thaddeus [facility] ..840.114 350.1.13.10 4.2.7.2.686 [id number] [facility] 2020-07-11 00:00:00 2020-07-11 00:00:00 Patient Outreach Rosalio Howard Thaddeus [facility] ..840.114 350.1.13.10 4.2.7.2.686 [id number] 2020-05-03 00:00:00 2020-05-03 00:00:00 Thai Davis [facility] ..840.114 350.1.13.10 4.2.7.2.686 [id number] [facility] 2020-05-03 00:00:00 2020-05-03 00:00:00 Thai Davis [facility] 1.2840.114 350.1.13.10 4.2.7.2.686 [id number] 2020 00:00:00 2020 00:00:00 Patient Secure Msg Aleisha Farnsworth [facility] MED[facility] OFFICE BUILDING 1.2.840.114 350.1.13.10 4.2.7.2.686 [id number] [facility] 2020-02-12 00:00:00 2020-02-12 00:00:00 Thai Davis [facility] 1.2840.114 350.1.13.10 4.2.7.2.686 [id number] [facility] 2020-02-12 00:00:00 2020-02-12 00:00:00 Thai Davis [facility] 1.2.840.114 350.1.13.10 4.2.7.2.686 [id number] 2020-01-29 00:00:00 2020-01-29 00:00:00 Patient Secure Msg Doctor Unassigned, [place] [facility] BU[facility] 1.2.840.114 350.1.13.10 4.2.7.2.686 [id number] [facility] 2019-11-07 14:59:00 2019-11-07 23:59:00 Hospital Encounter Aleisha Farnsworth [facility] 1.2840.114 350.1.13.10 4.2.7.2.686 [id number] [facility] 2019-11-07 14:59:00 2019-11-07 23:59:00 Hospital Encounter Aleisha Farnsworth [facility] 1.2.840.114 350.1.13.10 4.2.7.2.686 [id number] 2019-11-07 00:00:00 2019-11-07 00:00:00 Outpatient R [facility] [id number] [facility] 2019-10-30 00:00:00 2019-10-30 00:00:00 Telephone Thai Bueno [facility] 1.2.840.114 350.1.13.10 4.2.7.2.686 [id number] [facility] 2019-10-30 00:00:00 2019-10-30 00:00:00 Telephone Thai Bueno [facility] 1.2.840.114 350.1.13.10 4.2.7.2.686 [id number] 2019-10-25 13:45:00 2019-10-25 13:45:00 Outpatient R [facility] [id number] [facility] 2019-10-25 11:05:07 2019-10-25 11:20:07 [facility] 1.2.840.114 350.1.13.10 4.2.7.2.686 [id number] [facility] 2019-10-25 00:00:00 2019-10-25 00:00:00 Telephone Christian [facility] Medical Office Building 1.2.840.114 350.1.13.10 4.2.7.2.686 [id number] [facility] 2019-10-10 09:35:15 2019-10-10 10:05:04 Office Visit MylesThai [facility] 1.2.840.114 350.1.13.10 4.2.7.2.686 [id number] [facility] 2019-10-10 09:35:15 2019-10-10 10:05:04 Office Visit MylesThai rosario [facility] 1.2.840.114 350.1.13.10 4.2.7.2.686 [id number] 2019-10-10 09:40:00 2019-10-10 09:40:00 Outpatient THAI [facility] [id number] [facility] 2019-10-10 00:00:00 2019-10-10 00:00:00 Orders Only Doctor Unassigned, [place] [facility] 1..840.114 350.1.13.10 4.2.7.2.686 [id number] [facility] 2019-10-06 14:40:00 2019-10-06 14:40:00 Outpatient THAI [facility] [id number] [facility] 2019-07-08 00:00:00 2019-07-08 00:00:00 Refill Thai Bueno [facility] 1.2.840.114 350.1.13.10 4.2.7.2.686 [id number] [facility] 2019-01-10 09:45:12 2019-01-10 10:48:53 Office Visit [facility] 1.2.840.114 350.1.13.10 4.2.7.2.686 [id number] [facility] 2018-12-28 12:49:42 2018-12-28 23:59:00 Hospital Encounter Thai Bueno [facility] 1.2.840.114 350.1.13.10 4.2.7.2.686 [id number] [facility] 2018-12-19 10:19:39 2018-12-19 12:15:25 Office Visit [facility] 1.2.840.114 350.1.13.10 4.2.7.2.686 [id number] [facility] 2018-12-13 13:54:17 2018-12-13 14:41:26 Office Visit Dmitry Fiore [facility] 1.2.840.114 350.1.13.10 4.2.7.2.686 [id number] [facility] 2018-12-09 00:00:00 2018-12-09 00:00:00 Telephone Dmitry Fiore [facility] 1.2.840.114 350.1.13.10 4.2.7.2.686 [id number] [facility] 2018-11-29 06:49:00 2018-11-29 09:54:00 Hospital Encounter Edith Merrill [facility] 1.2.840.114 350.1.13.10 4.2.7.2.686 [id number] [facility] 2018-11-29 00:00:00 2018-11-29 00:00:00 Orders Only Doctor Unassigned, [place] [facility] 1.2.840.114 350.1.13.10 4.2.7.2.686 [id number] [facility] Results Test Description Test Time Test Comments Results Result Comments Source MR BRAIN W WO CONTRAST 21:56:02 Unremarkable brain MRI. No evidence of trigeminal vascular compression. EXAM: MR BRAIN W WO CONTRAST HISTORY: FIESTA sequence to evaluate skull base for vascular compression oftrigeminal nerve TECHNIQUE: MRI of the brain was performed on 1.5 Nevaeh before and afterintravenous administration of 16 mL of ProHance utilizing acousticprotocol. COMPARISON: Brain MRI dated 12/28/2018. FINDINGS: The ventricles and sulci are normal in caliber and configuration. Nohydrocephalus. The basal cisterns are within normal limits. There is no diffusion restriction suggest acute/subacute infarction. Nointracranial hemorrhage, extra-axial collection, mass effect, midlineshift, or herniation. No abnormal signal Blooming on gradient sequences. Few scattered foci of T2/FLAIR hyperintensity in bilateral cerebral whitematter, nonspecific likely represent microvascular ischemic changes. Few scattered foci of T2/FLAIR hyperintensity in the bilateral cerebralwhite matter, nonspecific likely represent microvascular ischemic changes. No abnormal intracranial enhancement. No focal lesion or abnormal enhancement in the cerebellopontine angles orinternal auditory canals. The trigeminal nerves are normal in morphologyand signal intensity. No evidence of vascular compression. Thevestibulocochlear nerves are unremarkable. Normal T2 hyperintense signal ofthe inner ears structures. The T2 signal void of intracranial vessels is within normal limits. No abnormal signal in the paranasal sinuses or mastoid air cells. [facility], Radiant Results Inft User - 11/07/2019 4:57 PM CDTEXAM: MR BRAIN W WO CONTRASTHISTORY: FIESTA sequence to evaluate skull base for vascular compression oftrigeminal nerve TECHNIQUE: MRI of the brain was performed on 1.5 Nevaeh before and afterintravenous administration of 16 mL of ProHance utilizing acousticprotocol.COMPARI SON: Brain MRI dated 12/28/2018.FINDINGS: The ventricles and sulci are normal in caliber and configuration. Nohydrocephalus. The basal cisterns are within normal limits.There is no diffusion restriction suggest acute/subacute infarction. Nointracranial hemorrhage, extra-axial collection, mass effect, midlineshift, or herniation. No abnormal signal Blooming on gradient sequences.Few scattered foci of T2/FLAIR hyperintensity in bilateral cerebral whitematter, nonspecific likely represent microvascular ischemic changes.Few scattered foci of T2/FLAIR hyperintensity in the bilateral cerebralwhite matter, nonspecific likely represent microvascular ischemic changes.No abnormal intracranial enhancement.No focal lesion or abnormal enhancement in the cerebellopontine angles orinternal auditory canals. The trigeminal nerves are normal in morphologyand signal intensity. No evidence of vascular compression. Thevestibulocochlear nerves are unremarkable. Normal T2 hyperintense signal ofthe inner ears structures.The T2 signal void of intracranial vessels is within normal limits. No abnormal signal in the paranasal sinuses or mastoid air cells.IMPRESSIONUnremark able brain MRI.No evidence of trigeminal vascular compression. [facility] MR BRAIN WO CONTRAST 20:10:21 A few nonspecific foci of hyperintense T2/FLAIR signal in the deep whitematter may represent minimal ischemic small vessel disease No Chiari I malformation is present I, Julio César Champagne MD., have reviewed this study and agree with theabove report.MR BRAIN WO CONTRAST HISTORY: 48 years-old; Female; Head pain. Left mastoid pain, Chiari 1malformation COMPARISON: None TECHNIQUE: Multiplanar multisequence imaging of the brain was obtained on a1.5 Nevaeh MRI without contrast. FINDINGS: The ventricles and cerebral sulci are normal in caliber and configuration.No midline shift, hydrocephalus or pathological extra-axial fluidcollection is present. The basal cisterns are unremarkable. No restricted diffusion is present to suggest acute infarct. A fewscattered periventricular and deep white matter T2/FLAIR hyperintensitiesare noted and can be seen with ischemic changes. No abnormal gradientblooming. The T2 flow voids for the major intracranial vessels are unremarkable. Noabnormal fluid signal is present in the mastoid air cells or paranasal airsinuses. [facility], Radiant Results Inft User - 12/28/2018 3:12 PM CDR BRAIN WO CONTRASTHISTORY: 48 years-old; Female; Head pain. Left mastoid pain, Chiari 1malformation COMPARISON: NoneTECHNIQUE: Multiplanar multisequence imaging of the brain was obtained on a1.5 Nevaeh MRI without contrast.FINDINGS:The ventricles and cerebral sulci are normal in caliber and configuration.No midline shift, hydrocephalus or pathological extra-axial fluidcollection is present. The basal cisterns are unremarkable.No restricted diffusion is present to suggest acute infarct. A fewscattered periventricular and deep white matter T2/FLAIR hyperintensitiesare noted and can be seen with ischemic changes. No abnormal gradientblooming.The T2 flow voids for the major intracranial vessels are unremarkable. Noabnormal fluid signal is present in the mastoid air cells or paranasal airsinuses.IMPRESSIONA few nonspecific foci of hyperintense T2/FLAIR signal in the deep whitematter may represent minimal ischemic small vessel diseaseNo Chiari I malformation is presentJulio César Espinoza MD., have reviewed this study and agree with theabove report. [facility]
[2024-05-13] MEDS ORDERED: ONDANSETRON 4 MG/2 ML VIAL ONE (20:57)
[2024-05-13] MEDS ORDERED: MORPHINE 4 MG/ML SYR ONE (20:57)
[2024-05-13] MEDS ORDERED: NA CHLORIDE 0.9% 1,000 ML ONE ×2 (20:57→22:51)
[2024-05-13 21:25] LABS: Albumin 3.9 g/dL (3.4-5.0); Bilirubin Total 1.1 mg/dL (0.2-1.0); Globulin 3.9 g/dL (2.3-3.5); Protein, Total 7.8 g/dL (6.4-8.2)
[2024-05-13 21:31] LABS: Absolute Lymphocytes (CBC) 0.7 K/uL (0.7-4.9); Absolute Monocytes 0.5 K/uL (0.1-1.3); Absolute Neutrophil 3.5 K/uL (1.8-8.0); Basophils % 0.9 % (0-1.3); Eosinophils % 0.1 % (0-4.4); Hematocrit 44.4 % (36.0-45.0); Hemoglobin 15.4 g/dL (12.0-15.0); MCH 28.8 pg (27.0-35.0); MCHC 34.6 g/dL (32.0-36.0); MCV 83.2 fL (80-100); MPV 8.3 fL (7.6-11.3); Monocytes % 10.7 % (3.3-12.3); Neutrophils % 73.3 % (41.7-73.7); Nucleated Red Blood Cells % 0.2 % (0-0); PT Prothrombin Time 13.1 SECONDS (9.4-12.5); PTT, Activated Partial Thromb 32.8 SECONDS (24.3-36.9); Platelets 195 thou/uL (152-406); Protime INR 1.25; RBC Red Blood Cell Count 5.34 M/uL (3.86-4.86); Red Cell Distribution Width 14.5 % (12.1-15.2)
--- NOTE | 2024-05-13 22:01 | RAD REPORT ---
EXAMINATION: CT HEAD WITHOUT CONTRAST CLINICAL INDICATION: Female, 54 years old.HEADACHE TECHNIQUE: Axial CT images from the skull base to the vertex without intravenous contrast. Coronal an d sagittal reformatted images were created from the data set. One or more of the following dose reduction techniques were used: Automated exposure control, adjustment of the mA and/or kV according to patient size, and/or iterative reconstruction. Unless otherwise specified, incidental findings do not require dedicated imaging follow-up. [id number]. COMPARISON: No prior exam. FINDINGS: INTRACRANIAL: No acute intracranial hemorrhage. No hydrocephalus. No mass effect or midline shift. No significant white matter disease. VASCULATURE: No visualized abnormalities in the arteries or dural venous sinuses. SCALP/SKULL: No significant soft tissue or osseous abnormalities. SINUSES: The visualized paranasal sinuses and mastoid air cells are predominantly clear. IMPRESSION: No acute intracranial abnormality.
--- NOTE | 2024-05-13 22:09 | RAD REPORT ---
EXAMINATION: CT ABDOMEN AND PELVIS WITH CONTRAST CLINICAL INDICATION: Female, 54 years old.ABD PAIN TECHNIQUE: CT abdomen and pelvis was performed, after the administration of IV contrast[facility]. Axial, sagittal and coronal reconstructions were obtained. One or more of the following dose reduction techniques were used: Automated exposure control, adjustment of the mA and/o r kV according to patient size, and/or iterative reconstruction. Unless otherwise specified, incidental findings do not require dedicated imaging follow-up. [id number]. COMPARISON: Lumbar spine CT 04/23/2020, CT stone protocol 01/08/2019 FINDINGS: LOWER CHEST: No acute process identified.No significant pericardial effusion. Mild circumferential th ickening of the distal esophagus which could reflect esophagitis. UPPER GI: No significant abnormality. LIVER: Hepatic steatosis, but otherwise unremarkable. GALLBLADDER/BILE DUCTS: No biliary ductal dilatation.? PANCREAS: Nonspecific diffuse prominence of the pancreatic duct. No mass identified. SPLEEN: Unremarkable. ADRENALS: No adrenal masses. KIDNEYS AND URETERS: No hydronephrosis.Low density and/or too small to characterize renal lesions whi ch are statistically benign. ABDOMINAL AORTA AND OTHER VESSELS: Mild atherosclerotic changes. Linear filling defect in the IVC is likely methylmethacrylate from prior vertebroplasty. PERITONEUM: No abnormal free fluid. No free air. LYMPH NODES: Rectus size ileocolic mesenteric lymph nodes. ABDOMINAL WALL: Unremarkable SMALL BOWEL/COLON: Mild diffuse colonic wall thickening and hyperenhancement.Underdistended terminal ileum which may also be enhancing. Normal appendix. URINARY BLADDER: Underdistended but grossly unremarkable. REPRODUCTIVE ORGANS: No pathologic process. MUSCULOSKELETAL: Kyphoplasty changes at L1-L2. No acute fracture. ADDITIONAL FINDINGS: None. IMPRESSION: Pancolitis. Possible involvement of the terminal ileum (i.e. enterocolitis). No bowel obstruction. No rmal appendix.
--- NOTE | 2024-05-13 22:19 | EDPHYS ---
Physician Documentation [facility] Name: Britt Aragon Age: 54 yrs Sex: Female : 1970 Arrival Date: 05/13/2024 Time: 19:35 Bed 19 Private MD: Pedro Hammer ED Physician Luciano Hudson HPI: 05/13 20:06 This 54 yrs old Female presents to ER via Ambulatory with complaints of Headache, sb4 Diarrhea. 20:06 Patient reports diarrhea that began 2 days ago associated with abdominal pain and sb4 nausea. States that this has happened before and was secondary to her gallbladder. States that she did eat chili con carne a few days ago and believes that may have triggered it. States that she started having a migraine today that is causing her "equilibrium "to be off. Reports associated light and noise sensitivity. Cannot get any relief with any [id number] medication. 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 - Infectious Disease History:: Denies. - Social history:: Smoking status: Reported history of juuling and/or vaping. ROS: 20:06 Constitutional: Negative for fever, chills, and weight loss, sb4 20:06 Abdomen/GI: Positive for abdominal pain, nausea, vomiting, and diarrhea, 20:06 Neuro: Positive for headache, 20:06 All other systems are negative, Exam: 20:07 Head/Face: Normocephalic, atraumatic. Eyes: Extra-ocular motions intact. Periorbital sb4 areas with no swelling, redness, or edema. Respiratory: No increased work of breathing, no retractions or nasal flaring. 20:07 Skin: Warm, dry with normal turgor. Normal color with no rashes, no lesions, and no evidence of cellulitis. MS/ Extremity: Pulses equal, no cyanosis. Neurovascular intact. Full, normal range of motion. 20:07 Constitutional: The patient appears alert, awake, obviously ill, uncomfortable, 20:07 Cardiovascular: Rate: tachycardic, Rhythm: regular, 20:07 Abdomen/GI: Inspection: abdomen appears normal, Bowel sounds: normal, Palpation: soft, moderate abdominal tenderness, in the right upper quadrant, Vital Signs: 19:58 BP 125 / 82; Pulse 119; Resp 20; Temp 98.3; Pulse Ox 96% ; Weight 83.91 kg; Height 4 cp4 ft. 11 in. ; Pain 10/10; 20:00 BP 131 / 86; Pulse 106; Resp 16; Pulse Ox 97% ; me1 21:00 BP 126 / 86; Pulse 110; Resp 16; Pulse Ox 97% ; me1 22:00 BP 125 / 78; Pulse 95; Resp 19; Pulse Ox 97% ; me1 23:00 BP 131 / 66; Pulse 99; Resp 19; Pulse Ox 94% ; me1 05/14 00:30 BP 127 / 70; Pulse 78; Resp 18; Pulse Ox 95% ; cp4 05/13 19:58 Body Mass Index 37.37 (83.91 kg, 149.86 cm) 4 05/13 19:58 Pain Scale: Adult cp4 Sera Coma Score: 05/13 22:18 Eye Response: spontaneous(4). Motor Response: obeys commands(6). Verbal Response: sb4 oriented(5). Total: 15. MDM: 19:45 Medical Screening Exam initiated sb4 22:18 Data reviewed: vital signs, nurses notes, lab test result(s), radiologic studies, and sb4 as a result, I will admit patient. Consideration of Admission/Observation Patient was admitted/placed on observation. Counseling: I had a detailed discussion with the patient and/or guardian regarding the historical points, exam findings, and any diagnostic results supporting the discharge/admit diagnosis, lab results, radiology results, the need for further work-up and treatment in the hospital. 05/13 20:06 Order name: Blood Culture Adult (2) sb4 05/13 20:06 Order name: CBC with Diff; Complete Time: 22:02 sb4 05/13 20:06 Order name: CMP; Complete Time: 21:29 sb4 05/13 20:06 Order name: Lactate w/ 2H reflex if indic.; Complete Time: 21:31 sb4 05/13 20:06 Order name: Protime (+inr); Complete Time: 21:31 sb4 05/13 20:06 Order name: Ptt, Activated; Complete Time: 21:31 sb4 05/13 20:06 Order name: Urinalysis w/ reflexes; Complete Time: 22:36 sb4 05/13 20:06 Order name: Lipase; Complete Time: 21:29 sb4 05/13 21:33 Order name: Ghost Lactate-NO COLLECT Timer; Complete Time: 23:38 EDMS 05/13 22:03 Order name: Lactate w/ 2H reflex if indic.; Complete Time: 23:44 sb4 05/13 22:12 Order name: CDIFF; Complete Time: 00:19 sb4 05/13 22:12 Order name: Fecal Leukocyte Stain sb4 05/13 22:12 Order name: Ova And Parasites sb4 05/13 22:12 Order name: Rotavirus Antigen; Complete Time: 23:47 sb4 05/13 22:12 Order name: Stool Culture 4 05/13 23:45 Order name: Lactate w/ 2H reflex if indic. EDMS 05/13 23:45 Order name: Urinalysis w/ reflexes EDMS 05/13 23:45 Order name: CBC with Automated Diff EDMS 05/13 23:45 Order name: CBC with Automated Diff EDMS 05/13 23:45 Order name: Comprehensive Metabolic Panel EDMS 05/13 23:45 Order name: Comprehensive Metabolic Panel EDMS 05/13 23:45 Order name: Magnesium EDMS 05/13 23:45 Order name: Magnesium EDMS 05/13 23:45 Order name: Phosphorus EDMS 05/13 23:45 Order name: Phosphorus EDMS 05/13 20:06 Order name: CT Abd/Pelvis - IV Contrast Only; Complete Time: 22:10 sb4 05/13 20:06 Order name: Head Brain Wo Cont CT; Complete Time: 22:02 sb4 05/13 20:06 Order name: EKG; Complete Time: 20:06 sb4 05/13 20:06 Order name: Cardiac monitoring; Complete Time: 21:17 sb4 05/13 20:06 Order name: EKG - Nurse/Tech; Complete Time: 21:17 sb4 05/13 20:06 Order name: IV Saline Lock - Large Bore; Complete Time: 20:59 sb4 05/13 20:06 Order name: Labs collected and sent; Complete Time: 20:59 sb4 05/13 20:06 Order name: O2 Per Protocol; Complete Time: 20:59 sb4 05/13 20:06 Order name: O2 Sat Monitoring; Complete Time: 20:59 sb4 05/13 20:06 Order name: Vital Signs; Complete Time: 20:59 sb4 EC:09 Rate is 109 beats/min. Rhythm is regular, Sinus tachycardia. NV interval is normal at sb4 168 msec. QRS interval is normal at 90 msec. QT interval is normal at 320 msec. No Q waves. T waves are Normal. No ST changes noted. Clinical impression: Sinus tachycardia. Interpreted by me. Reviewed by me. Administered Medications: 21:16 Drug: NS 0.9% IV 1000 ml IV at 1000 ml once; to be given as a bolus over 60 minutes me1 Route: IV; Rate: 1000 ml; Site: right antecubital; 22:38 Follow up: Response: No adverse reaction; IV Status: Completed infusion; IV Intake: [facility] 1000ml 21:16 Drug: morphine IVP or IV 4 mg IVP once over 4 mins Route: IVP; Infused Over: 4 mins; [facility] Site: right antecubital; 22:38 Follow up: Response: No adverse reaction; Pain is unchanged, physician notified [facility] 21:16 Drug: Ondansetron IVP 4 mg IVP once; over 2 minutes Route: IVP; Site: right antecubital;[facility] 21:21 Follow up: Response: No adverse reaction; Nausea is decreased [facility] 23:17 Drug: NS 0.9% IV 1000 ml IV at 100 ml/hr once Route: IV; Rate: 100 ml/hr; Site: right ay antecubital; 05/14 00:32 Follow up: Response: No adverse reaction; IV Status: Infusion continued upon admission [facility] 05/13 23:18 Drug: Ketorolac IVP 15 mg IVP once Route: IVP; Site: right antecubital; ay 05/14 00:33 Follow up: Response: No adverse reaction; Pain is decreased 4 05/13 23:18 Drug: metoCLOPramide IVP 10 mg IVP once; over 1 to 2 minutes Route: IVP; Site: right ay antecubital; 05/14 00:33 Follow up: Response: No adverse reaction [facility] 05/13 23:18 Drug: diphenhydrAMINE IVP 25 mg IVP once Route: IVP; Site: right antecubital; ay 05/14 00:33 Follow up: Response: No adverse reaction [facility] 05/13 23:18 Drug: Potassium PO Effervescent Tablet 50 mEq PO once; dissolve in 4 ounces of water or ay juice Route: PO; 05/14 00:33 Follow up: Response: No adverse reaction cp4 05/13 23:19 Drug: Piperacillin-Tazobactam IVPB 3.375 grams IVPB once over 60 mins; (mix in NS 100 ay mL) Route: IVPB; Infused Over: 60 mins; Site: right antecubital; 05/14 00:33 Follow up: Response: No adverse reaction; IV Status: Completed infusion cp4 Disposition: 00:44 Co-signature as Attending Physician, Luciano Hudson MD I reviewed the patient's care rt provided by the Advanced Practice Provider and agree with the diagnosis and treatment plan. Disposition Summary: 05/13/24 22:19 Hospitalization Ordered Notes: Hospitalization Status: Inpatient Admission sb4 Provider: Norbert Brito sb4 Location: Telemetry/[facility] (Inpatient) sb4 Condition: Fair sb4 Problem: new sb4 Symptoms: are unchanged sb4 Bed/Room Type: Standard sb4 Room Assignment: 205(05/13/24 23:52) vc1 Diagnosis - Pancolitis sb4 - Severe sepsis without septic shock sb4 Forms: - Medication Reconciliation Form sb4 - SBAR form sb4 - Leadership Thank You Letter sb4 Signatures: Dispatcher [employer] EDCinthia Larkin RN RN vc1 Keesha Bryant PA-C PARoby sb4 Luciano Hudson MD MD rt Araceli Marie RN RN me1 Dalila Conn cp4 Lamin Norris RN RN ay Corrections: (The following items were deleted from the chart) 05/13 22:13 22:13 C.difficile G[facility] Ag \\T\\ Toxin AB+LAB.BRZ ordered. EDMS EDMS 22:13 22:13 Fecal Leukocyte Stain+BA.LAB.BRZ ordered. EDMS EDMS 22:13 22:13 Ova and Parasites+MR.LAB.BRZ ordered. EDMS EDMS 22:13 22:13 Rotavirus Antigen+BA.LAB.BRZ ordered. EDMS EDMS 22:13 22:13 Stool Culture+BA.LAB.BRZ ordered. EDMS EDMS 23:52 22:19 sb4 vc1
--- NOTE | 2024-05-13 22:19 | ER ---
Nurse's Notes [facility] Name: Britt Aragon Age: 54 yrs Sex: Female : 1970 Arrival Date: 05/13/2024 Time: 19:35 Bed 19 Private MD: Pedro Hammer Diagnosis: Pancolitis;Severe sepsis without septic shock Presentation: 05/13 19:58 Chief complaint: Patient states: Diarrhea and headache that started on night. cp4 Coronavirus screen: Client denies travel out of the [place] in the last 14 days. Ebola Screen: Patient negative for fever greater than or equal to 101.5 degrees Fahrenheit, and additional compatible Ebola Virus Disease symptoms Patient denies exposure to infectious person. Patient denies travel to an Ebola-affected area in the 21 days before illness onset. No symptoms or risks identified at this time. Initial Sepsis Screen: Does the patient meet any 2 criteria? HR > 90 bpm. No. Patient's initial sepsis screen is negative. Does the patient have a suspected source of infection? No. Patient's initial sepsis screen is negative. Risk Assessment: Do you want to hurt yourself or someone else? Patient reports no desire to harm self or others. Onset of symptoms was May 11, 2024. 19:58 Method Of Arrival: Ambulatory [facility] 19:58 Acuity: YULY 3 cp4 Triage Assessment: 20:00 Headache History: The patient has had previous headaches and this one is similar to cp4 previous episodes. General: Appears in no apparent distress. uncomfortable, Behavior is calm, cooperative, appropriate for age. Pain: Complains of pain in head Pain currently is 10 out of 10 on a pain scale. Pain began suddenly. Neuro: Level of Consciousness is awake, alert, obeys commands, Oriented to person, place, time, situation. 05/14 00:31 Pain: Also complains of photophobia. 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 - Infectious Disease History:: Denies. - Social history:: Smoking status: Reported history of juuling and/or vaping. Screenin:45 [facility] ED Fall Risk Assessment (Adult) History of falling in the last 3 months, me1 including since admission No falls in past 3 months (0 pts) Confusion or Disorientation No (0 pts) Intoxicated or Sedated No (0 pts) Impaired Gait No (0 pts) Mobility Assist Device Used No (0 pt) Altered Elimination No (0 pt) Score/Fall Risk Level 0 - 2 = Low Risk Maintained a safe environment, Provided non-skid footwear, Hourly rounding (assess needs \T\ fall precautionary measures) done. Abuse screen: Denies threats or abuse. Nutritional screening: No deficits noted. Tuberculosis screening: No symptoms or risk factors identified. Assessment: 20:45 General: Appears ill, well groomed, well developed, well nourished, Behavior is calm, me1 cooperative, appropriate for age, Reports PAEZ and diarrhea since . Pain: Complains of pain in head and right upper quadrant Pain does not radiate. Pain currently is 10 out of 10 on a pain scale. Quality of pain is described as aching, Pain began gradually, 2-3 days ago. Is continuous. Neuro: Level of Consciousness is awake, alert, obeys commands, Oriented to person, place, time, situation, Appropriate for age. Neuro: Reports headache. Cardiovascular: Patient's skin is warm and dry. Respiratory: Airway is patent Respiratory effort is even, unlabored, Respiratory pattern is regular, symmetrical. GI: Abdomen is round non-distended, Bowel sounds present X 4 quads. Reports diarrhea, since . : No signs and/or symptoms were reported regarding the genitourinary system. EENT: No signs and/or symptoms were reported regarding the EENT system. Derm: Skin is intact, is healthy with good turgor, Skin is pink, warm \T\ dry. Musculoskeletal: No signs and/or symptoms reported regarding the musculoskeletal system. Vital Signs: 19:58 BP 125 / 82; Pulse 119; Resp 20; Temp 98.3; Pulse Ox 96% ; Weight 83.91 kg; Height 4 cp4 ft. 11 in. ; Pain 10/10; 20:00 BP 131 / 86; Pulse 106; Resp 16; Pulse Ox 97% ; me1 21:00 BP 126 / 86; Pulse 110; Resp 16; Pulse Ox 97% ; me1 22:00 BP 125 / 78; Pulse 95; Resp 19; Pulse Ox 97% ; me1 23:00 BP 131 / 66; Pulse 99; Resp 19; Pulse Ox 94% ; me1 05/14 00:30 BP 127 / 70; Pulse 78; Resp 18; Pulse Ox 95% ; cp4 05/13 19:58 Body Mass Index 37.37 (83.91 kg, 149.86 cm) cp4 05/13 19:58 Pain Scale: Adult cp4 [place] Coma Score: 05/13 22:18 Eye Response: spontaneous(4). Motor Response: obeys commands(6). Verbal Response: sb4 oriented(5). Total: 15. ED Course: 19:41 Patient arrived in ED. gm2 19:41 Pedro Hammer MD is Private Physician. gm2 19:45 [facility] sb4 19:45 Luciano Hudson MD is Attending Physician. sb4 20:00 Triage completed. cp4 20:00 Arm band placed on right wrist. Patient placed in waiting room. cp4 20:39 Araceli Marie, RN is Primary Nurse. me1 20:45 Patient has correct armband on for positive identification. Bed in low position. Call me1 light in reach. Side rails up X2. Provided Education on: POC. Verbalized understanding.. Client placed on continuous cardiac and pulse oximetry monitoring. NIBP monitoring applied. athletic monitor on. Pulse ox on. NIBP on. 20:45 No provider procedures requiring assistance completed. me1 20:54 Initial lab(s) drawn, by ut, sent to lab. First set of blood cultures drawn by ut. me1 20:59 Inserted saline lock: 20 gauge in right antecubital area, using aseptic technique. me1 20:59 Lipase Sent. me1 21:00 Blood Culture Adult (2) Sent. me1 21:00 CBC with Diff Sent. me1 21:00 CMP Sent. me1 21:00 Lactate w/ 2H reflex if indic. Sent. me1 21:00 Protime (+inr) Sent. me1 21:00 Ptt, Activated Sent. me1 21:07 Second set of blood cultures drawn by ut. me1 21:10 EKG done, by ED staff, reviewed by Keesha Bryant PA-C. 1 21:31 Notified Nurse Practitioner and/or Physician Handbag Designer of a critical lab result(s), me1 lactate 3.2, notified MECHELLE Prater. 21:52 CT Abd/Pelvis - IV Contrast Only In Process Unspecified. EDMS 21:52 Head Brain Wo Cont CT In Process Unspecified. EDMS 22:18 Norbert Brito MD is Hospitalizing Provider. sb4 22:47 Fecal Leukocyte Stain Sent. me1 22:47 Ova And Parasites Sent. me1 22:47 Rotavirus Antigen Sent. me1 22:47 Stool Culture Sent. me1 22:47 CDIFF Sent. me1 05/14 00:31 Patient admitted, IV remains in place. cp4 Administered Medications: 05/13 21:16 Drug: NS 0.9% IV 1000 ml IV at 1000 ml once; to be given as a bolus over 60 minutes me1 Route: IV; Rate: 1000 ml; Site: right antecubital; 22:38 Follow up: Response: No adverse reaction; IV Status: Completed infusion; IV Intake: me1 1000ml 21:16 Drug: morphine IVP or IV 4 mg IVP once over 4 mins Route: IVP; Infused Over: 4 mins; ut1 Site: right antecubital; 22:38 Follow up: Response: No adverse reaction; Pain is unchanged, physician notified me1 21:16 Drug: Ondansetron IVP 4 mg IVP once; over 2 minutes Route: IVP; Site: right antecubital;me1 21:21 Follow up: Response: No adverse reaction; Nausea is decreased me1 23:17 Drug: NS 0.9% IV 1000 ml IV at 100 ml/hr once Route: IV; Rate: 100 ml/hr; Site: right ay antecubital; 05/14 00:32 Follow up: Response: No adverse reaction; IV Status: Infusion continued upon admission 4 05/13 23:18 Drug: Ketorolac IVP 15 mg IVP once Route: IVP; Site: right antecubital; ay 05/14 00:33 Follow up: Response: No adverse reaction; Pain is decreased 4 05/13 23:18 Drug: metoCLOPramide IVP 10 mg IVP once; over 1 to 2 minutes Route: IVP; Site: right ay antecubital; 05/14 00:33 Follow up: Response: No adverse reaction 4 05/13 23:18 Drug: diphenhydrAMINE IVP 25 mg IVP once Route: IVP; Site: right antecubital; ay 05/14 00:33 Follow up: Response: No adverse reaction cp4 05/13 23:18 Drug: Potassium PO Effervescent Tablet 50 mEq PO once; dissolve in 4 ounces of water or ay juice Route: PO; 05/14 00:33 Follow up: Response: No adverse reaction cp4 05/13 23:19 Drug: Piperacillin-Tazobactam IVPB 3.375 grams IVPB once over 60 mins; (mix in NS 100 ay mL) Route: IVPB; Infused Over: 60 mins; Site: right antecubital; 05/14 00:33 Follow up: Response: No adverse reaction; IV Status: Completed infusion cp4 Medication: 05/13 20:45 VIS not applicable for this client. me1 Intake: 22:38 IV: 1000ml; Total: 1000ml. me1 Outcome: 22:19 Decision to Hospitalize by Provider. sb4 05/14 00:31 Admitted to Med/surg accompanied by tech, via wheelchair, with chart, cp4 Condition: stable Instructed on the need for admit, 00:36 Patient left the ED. cp4 Signatures: Dispatcher [employer] Keesha Claire PA-C PARonnyC sb4 Araceli Marie, KATE LOVE ut1 Dalila Conn cp4 Sara Falcon 2 Sultan Darrick [facility] Lamin Norris RN RN ay Corrections: (The following items were deleted from the chart) 05/13 20:39 19:58 Chief complaint: Patient states: Diarrhea and headache that started on me1 night. cp4
[2024-05-13 22:34] LABS: Specific Gravity 1.029 (1.005-1.030); Sqamous Epithelial <5 /HPF (None Seen); Urine Bacteria None Seen /HPF (<20); Urine Bilirubin NEGATIVE (Negative); Urine Blood 1+ (Negative); Urine Clarity Turbid (Clear); Urine Color Light-Yellow (Yellow); Urine Crystals Unidentified Few /HPF (None Seen); Urine Culture Reflex Order NOT NEEDED; Urine Glucose NEGATIVE (Negative); Urine Ketones 1+ (Negative); Urine Microscopic Reflex YN ORDER UMIC; Urine Nitrite NEGATIVE (Negative); Urine Protein 1+ (Negative); Urine RBC <5 /HPF (None Seen); Urine Urobilinogen Normal (Normal); Urine WBC <5 /HPF (<5); Urine pH 6.5 (5.0-7.0)
[2024-05-13] MEDS ORDERED: KETOROLAC 30 MG/ML INJ ONE (22:49)
[2024-05-13] MEDS ORDERED: NA CHLORIDE 0.9% 100 ML ONE (22:50)
[2024-05-13] MEDS ORDERED: DIPHENHYDRAMINE 50 MG/ML VIAL ONE (22:50)
[2024-05-13] MEDS ORDERED: METOCLOPRAMIDE 10 MG/2mL INJ ONE (22:50)
[2024-05-13] MEDS ORDERED: POTASSIUM 25 MEQ EFFERV TAB ONE (22:50)
[2024-05-13] MEDS ORDERED: PIPERACIL/TAZO 3.375 GM VIAL IV ONE (22:51)
--- NOTE | 2024-05-13 23:40 | P.HP ---
Certification for Inpatient Patient admitted to: Inpatient With expected LOS: >2 Midnights Practitioner: I am a practitioner with admitting privileges, knowledge of patient current condition, hospital course, and medical plan of care. Services: Services provided to patient in accordance with Admission requirements found in Title 42 Section 412.3 of the Code of Federal Regulations Patient History Date of Service: 05/14/24 Reason for admission: Abdominal Pain History of Present Illness: 54 yrs old Female with past medical history of migraines brought to ER with abdominal pain associated with nausea which has been going on for the last 2 days and has been progressively worsening and was brought to ER . Abdominal pain is diffuse, cramping type , 6 out of 10 in severity, intermittent, Associated with nausea Denies any fever or chills. No chest pain or shortness of breath Patient was assessed in the ER and had a CT which was suggestive of pancolitis with terminal ileum involvement Allergies adhesive Allergy (Verified 11/11/20 12:57) Rash/Burn pineapple Allergy (Verified 11/11/20 12:57) Anaphylaxis progesterone Allergy (Verified 11/11/20 12:57) Anger/Agitation Home medications list reviewed: Yes Home Medications: Gabapentin 300 mg PO TID 11/11/20 Diclofenac Sodium [Voltaren] 75 mg PO DAILY 05/14/24 Doxepin HCl 50 mg PO BEDTIME 05/14/24 Venlafaxine HCl [Venlafaxine HCl ER] 150 mg PO DAILY 05/14/24 methocarbamoL [Robaxin*] 750 mg PO DAILY PRN 05/14/24 - Past Medical/Surgical History Past Medical History: Reviewed- Non-Contributory Past Surgical History: Reviewed- Non-Contributory - Social History Smoking Status: Never smoker Review of Systems 10-point ROS is otherwise unremarkable Physical Examination - Vital Signs Temperature: 98.1 F Blood Pressure: 125/82 Pulse: 110 Respirations: 17 Pulse Ox (%): 94 - Physical Exam General: Alert, In no apparent distress, Oriented x3 HEENT: Atraumatic, Normocephalic Neck: Supple Respiratory: Clear to auscultation bilaterally, Normal air movement Cardiovascular: Regular rate/rhythm, Normal S1 S2 Capillary refill: <2 Seconds Gastrointestinal: W/out hepatosplenomegaly, Tenderness Musculoskeletal: No clubbing, No swelling Integumentary: No rashes, No breakdown Neurological: Normal speech, Normal strength at 5/5 x4 extr, Cranial nerves 3-12 intact, Normal reflexes 2+ Lymphatics: No axilla or inguinal lymphadenopathy - Studies Laboratory Data (last 24 hrs) 05/13/24 05/13/24 05/13/24 20:54 20:54 20:54 WBC 4.80 Hgb 15.4 H Hct 44.4 Plt Count 195 PT 13.1 H INR 1.25 APTT 32.8 Sodium 131 L Potassium 3.0 L BUN 18 Creatinine 1.03 H Glucose 149 H Total Bilirubin 1.1 H AST 18 ALT 48 Alkaline Phosphatase 69 Lipase 16 Assessment and Plan - Plan Pancolitis With terminal ileum involvement To rule out ulcerative colitis Will get a CRP level Started on IV antibiotic to treat of infectious colitis Pain control Lactic acidosis Acute kidney injury Hyponatremia Hypokalemia Replace electrolytes and monitor closely on telemetry IV hydration Repeat panel lactic acid levels Obtain cultures Migraine Continue home medications GI/DVT prophylaxis Advanced directive full code Discharge Plan: Home Plan to discharge in: 48 Hours - Advance Directives Does patient have a Living Will: No Does patient have a Durable POA for Healthcare: No - Code Status/Comfort Care Code Status: Full Code Time Spent Managing Pts Care (In Minutes): 48
[2024-05-14 00:17] LABS: C.diff Antigen/Toxin Ag neg : Tox neg (NEG : NEG); CDIFF INTERNAL NEG CONTROL White Background (WHITE BKGD); STOOL CONSISTENCY Liquid/Semi-Solid
[2024-05-14 00:49] VITALS: BMI 38.2
[2024-05-14] MEDS: D5 0.45 NS 1,000 ML IV SCH (01:09)
[2024-05-14] MEDS: METRONIDAZOLE 500mg IVPB 500 MG/100 ML BAG IV SCH (01:10)
[2024-05-14] MEDS: ACETAMINOPHEN 325 MG TABLET PO PRN (03:05)
[2024-05-14 06:16] LABS: Absolute Lymphocytes (CBC) 0.6 K/uL (0.7-4.9); Absolute Monocytes 0.4 K/uL (0.1-1.3); Basophils % 0.6 % (0-1.3); Eosinophils % 0.3 % (0-4.4); Hematocrit 36.8 % (36.0-45.0); Hemoglobin 12.7 g/dL (12.0-15.0); Lymphocytes % 21.4 % (15.3-44.8); MCH 29.1 pg (27.0-35.0); MCHC 34.5 g/dL (32.0-36.0); MCV 84.2 fL (80-100); MPV 8.1 fL (7.6-11.3); Monocytes % 12.3 % (3.3-12.3); Neutrophils % 65.4 % (41.7-73.7); Nucleated Red Blood Cells % 0.3 % (0-0); Platelets 160 thou/uL (152-406); RBC Red Blood Cell Count 4.37 M/uL (3.86-4.86); Red Cell Distribution Width 14.5 % (12.1-15.2)
[2024-05-14 06:23] LABS: Albumin 2.9 g/dL (3.4-5.0); Albumin/Globulin Ratio 0.9 (1.1-1.8); Anion Gap 8.4 mEq/L (5.0-15.0); Bilirubin Total 0.5 mg/dL (0.2-1.0); Globulin 3.1 g/dL (2.3-3.5); Magnesium 1.7 mg/dL (1.6-2.4); Phosphorus 1.8 mg/dL (2.5-4.9); Potassium 3.4 mEq/L (3.5-5.1)
[2024-05-14] MEDS: ACETAMIN/CAFFEINE/BUTALB TAB PO ONE (06:38)
[2024-05-14] MEDS: KETOROLAC 30 MG/ML INJ IV SCH (07:15)
[2024-05-14] MEDS: CEFTRIAXONE 1,000 MG in NA CHLORIDE 0.9% 50 ML IVPB SCH (08:31)
[2024-05-14] MEDS: ENOXAPARIN 40 MG/0.4 ML SQ SCH (08:34)
[2024-05-14] MEDS: SULFASALAZINE 500 MG E.C. TAB PO SCH (10:23)
[2024-05-14] MEDS ORDERED: MORPHINE 2 MG/ML SYR IV PRN (14:57)
[2024-05-14] MEDS: HYDROCODONE/APAP 5/325 MG TAB PO PRN (16:57)
--- NOTE | 2024-05-14 17:30 | P.PN ---
Date of Service: 05/14/24 Subjective Pt c/o diarrhea and a headache Review of Systems 10-point ROS is otherwise unremarkable Physical Examination - Vital Signs reviewed - Physical Exam General: Alert, In no apparent distress, Oriented x3 HEENT: Atraumatic, Normocephalic Neck: Supple Respiratory: Clear to auscultation bilaterally, Normal air movement Cardiovascular: Regular rate/rhythm, Normal S1 S2 Capillary refill: <2 Seconds Gastrointestinal: W/out hepatosplenomegaly, Tenderness Musculoskeletal: No clubbing, No swelling Integumentary: No rashes, No breakdown Neurological: Normal speech, Normal strength at 5/5 x4 extr, Cranial nerves 3-12 intact, Normal reflexes 2+ Lymphatics: No axilla or inguinal lymphadenopathy - Studies Laboratory Data (last 24 hrs) 05/13/24 05/13/24 05/13/24 20:54 20:54 20:54 WBC 4.80 Hgb 15.4 H Hct 44.4 Plt Count 195 PT 13.1 H INR 1.25 APTT 32.8 Sodium 131 L Potassium 3.0 L BUN 18 Creatinine 1.03 H Glucose 149 H Total Bilirubin 1.1 H AST 18 ALT 48 Alkaline Phosphatase 69 Lipase 16 Assessment and Plan Pancolitis With terminal ileum involvement To rule out ulcerative colitis Will get a CRP level (179) Started on IV antibiotic to treat of infectious colitis Pain control Lactic acidosis (resolved) Acute kidney injury (resolved) Hyponatremia (resolved) Hypokalemia (3.4) up from 3.0 Replace electrolytes and monitor closely on telemetry IV hydration Repeat panel lactic acid levels Obtain cultures Migraine Continue home medications given some fioricet GI/DVT prophylaxis Advanced directive full code Discharge Plan: Home Plan to discharge in: 48 Hours - Advance Directives Does patient have a Living Will: No Does patient have a Durable POA for Healthcare: No - Code Status/Comfort Care Code Status: Full Code
[2024-05-15] MEDS: ONDANSETRON 4 MG/2 ML VIAL IV PRN (07:01)
[2024-05-15 08:53] VITALS: O2SAT 97
[2024-05-15] MEDS: PROMETHAZINE 25 MG TABLET ONE (09:57)
[2024-05-15] MEDS: PROMETHAZINE 25 MG TABLET PO ONE (10:04)
[2024-05-15 12:09] VITALS: BP 136/66; TEMP 97.6
[2024-05-15] MEDS: METHYLPREDNISOLONE 125 MG INJ IV ONE (12:20)
--- NOTE | 2024-05-15 12:26 | CON ---
History Of Present Illness: This is a 54-year-old female coming in after 4 days of abdominal pain wi th nausea. Patient thought it might have been her gallbladder. Pain was worsening 2 days prior to a dmission, and she decided to come to the hospital. Denies any fever, blood in stool, but since she h as been in hospital, her stools have turned into dark black in color. The patient also had some dizz iness with Flagyl and headaches. Past Medical History: Bilateral knee surgery, and total abdominal hysterectomy, migraines. Social History: Nonsmoker, nondrinker. Family History: Noncontributory. Medications: Rocephin, Flagyl, sulfasalazine. See MARs for other medication. Allergies: ADHESIVE AND PINEAPPLE AND PROGESTERONE. Review of Systems: A 10-point review was performed. Physical Examination: General: This is a 54-year-old female, lying in bed, not in any acute cardiopulmonary distress. Vital Signs: Temperature 98, pulse 63, respirations 14, blood pressure 130/66. HEENT: Unremarkable. Neck: Supple: Basal crackles. Heart: S1, S2. Regular. Abdomen: Soft, obese. Bowel sounds present. Extremities: No edema. Laboratory Data: WBC 3, down from 4.8; hemoglobin 12.7; platelets are 160. Chemistry shows BUN of 1 4, creatinine 0.7. Blood cultures negative for 24 hours. Stool fecal leukocytes seen, few ova and p arasite pending, rotavirus pending. Stool cultures are in progress. Her abdominal CT showed that th e patient has pancolitis, possibly involvement of the terminal ileum. There is enterocolitis. No luz wel obstruction. Normal appendix. Assessment And Plan: A 54-year-old female with history of depression, coming in with abdominal pain and nausea. CT abdomen is showing polo colitis. Currently, on Rocephin and Flagyl. We will recommen d to continue for 14 days. Can be switched to oral Cipro and Flagyl on discharge. Consider GI refer ral for followup and evaluation. Continue hydration and supportive care. Continue nutritional as pe r dietitian recommendation. We will follow the patient as needed. NF/MODL Voice ID: [id number] Report ID: [id number]
[2024-05-15] MEDS ORDERED: METHYLPREDNISOLONE 125 MG INJ IV SCH (18:00)
--- NOTE | 2024-05-15 22:25 | P.DS ---
Admission Date: 05/13/24 Discharge Date: 05/15/24 Disposition: ROUTINE DISCHARGE Discharge Condition: GOOD Reason for Admission: Abdominal Pain Brief History of Present Illness: 54 yrs old Female with past medical history of migraines brought to ER with abdominal pain associated with nausea which has been going on for the last 2 days and has been progressively worsening and was brought to ER . Abdominal pain is diffuse, cramping type , 6 out of 10 in severity,Patient was assessed in the ER and had a CT which was suggestive of pancolitis with terminal ileum involvement admitted for IV antibiotics. - Physical Exam General: Alert, In no apparent distress, Oriented x3 HEENT: Atraumatic, Normocephalic Neck: Supple Respiratory: Clear to auscultation bilaterally, Normal air movement Cardiovascular: Regular rate/rhythm, Normal S1 S2 Capillary refill: <2 Seconds Gastrointestinal: W/out hepatosplenomegaly, Tenderness Musculoskeletal: No clubbing, No swelling Integumentary: No rashes, No breakdown Neurological: Normal speech, Normal strength at 5/5 x4 extr, Hospital Course: 54 yrs old Female with past medical history of migraines brought to ER with abdominal pain associated with nausea which has been going on for the last 2 days and has been progressively worsening and was brought to ER . Abdominal pain is diffuse, cramping type , 6 out of 10 in severity, intermittent, Patient was assessed in the ER and had a CT which was suggestive of pancolitis with terminal ileum involvement. she was admitted for Pancolitis. With terminal ileum involvement. To rule out ulcerative colitis. She was treated with IV antibiotics, steroids, stool cultures were obtained. Symptoms improved with treatment. She is tolerating diet, stable to discharge home on p.o. steroids, as needed analgesics follow-up with GI outpatient Discharge of Deltasone 20 mg PO BID [place] 5/325- take as directed Sulfazine 500 QID Assessment Pancolitis With terminal ileum involvement, To rule out ulcerative colitis-r 14 days. Can be switched to oral Cipro and Flagyl CRP level-elevated, treated with steroids. Lactic acidosis-improved with IV fluids, Acute kidney injury-improvement IV Hyponatremia-improvement IV fluids Hypokalemia-replaced per protocol Migraine-as needed analgesia CT abdomen IMPRESSION: Pancolitis. Possible involvement of the terminal ileum (i.e. enterocolitis). No bowel obstruction. Normal appendix. Ct Head No acute intracranial abnormality. Stool cultures rotavirus negative, culture and sensitivity in progress Continue home medicines as previously prescribed GOAL: Clear understanding of disease process INSTRUCTIONS: Physician Discharge Instructions: -Follow-up with GI after discharge -Follow-up with PCP in 1 to 2 weeks -Please call Dr. Bucio at [phone] if any questions regarding hospital stay -Please call nursing station at [phone] if any nursing or medication questions -Return to the emergency room if symptoms worsen Diet: ADA, low sodium Activity: Fall precautions Vital Signs/Physical Exam: Temp Pulse Resp BP Pulse Ox 97.6 F 58 16 136/66 97 05/15/24 12:00 05/15/24 12:00 05/15/24 12:00 05/15/24 12:00 05/15/24 12:00 Laboratory Data at Discharge: WBC 3.00 thou/uL (4.3-10.9) L 05/14/24 05:51 Hgb 12.7 g/dL (12.0-15.0) D 05/14/24 05:51 Hct 36.8 % (36.0-45.0) 05/14/24 05:51 Plt Count 160 thou/uL (152-406) 05/14/24 05:51 PT 13.1 SECONDS (9.4-12.5) H 05/13/24 20:54 INR 1.25 05/13/24 20:54 APTT 32.8 SECONDS (24.3-36.9) 05/13/24 20:54 Sodium 138 mEq/L (136-145) D 05/14/24 05:51 Potassium 3.4 mEq/L (3.5-5.1) L D 05/14/24 05:51 BUN 14 mg/dL (7-18) 05/14/24 05:51 Creatinine 0.78 mg/dL (0.55-1.02) 05/14/24 05:51 Glucose 158 mg/dL (74-106) H 05/14/24 05:51 Phosphorus 1.8 mg/dL (2.5-4.9) L 05/14/24 05:51 Magnesium 1.7 mg/dL (1.6-2.4) 05/14/24 05:51 Total Bilirubin 0.5 mg/dL (0.2-1.0) 05/14/24 05:51 AST 18 U/L (15-37) 05/14/24 05:51 ALT 39 U/L (13-56) 05/14/24 05:51 Alkaline Phosphatase 52 U/L (45-117) D 05/14/24 05:51 Lipase 16 U/L (13-75) 05/13/24 20:54 Home Medications: Gabapentin 300 mg PO TID 11/11/20 Diclofenac Sodium [Voltaren] 75 mg PO DAILY 05/14/24 Doxepin HCl 50 mg PO BEDTIME 05/14/24 Venlafaxine HCl [Venlafaxine HCl ER] 150 mg PO DAILY 05/14/24 methocarbamoL [Robaxin*] 750 mg PO DAILY PRN 05/14/24 Hydrocodone 5/APAP 325 [[place] 5/325*] 1 tab PO Q6H PRN #20 tab 05/15/24 predniSONE [Deltasone] 20 mg PO BID #20 tab 05/15/24 sulfaSALAzine [Sulfas[address]azine Dr] 500 mg PO QID #120 tab 05/15/24 New Medications: Hydrocodone 5/APAP 325 [[place] 5/325*] 1 tab PO Q6H PRN #20 tab PRN Reason: Pain Scale 5-7 (Moderate) predniSONE [Deltasone] 20 mg PO BID #20 tab sulfaSALAzine [Sulfasalazine Dr] 500 mg PO QID #120 tab Physician Discharge Instructions: -DC IV and DC home -Follow-up with PCP in 1 to 2 weeks -Follow-up with GI, Dr. Hines, in 1 to 2 weeks -Please call Dr. Bucio at [phone] if any questions regarding hospital stay -Please call nursing station at [phone] if any nursing or medication questions -Return to the emergency room if symptoms worsen Diet: Regular Activity: Fall precautions Followup: Pedro Hammer MD [Primary Care Provider] - 1-2 Weeks Anmol Hines MD [ASSOCIATE-ACTIVE - CAN ADMIT] - 1-2 Weeks Time spent managing pt's care (in minutes): 45
--- NOTE | 2024-05-18 13:07 | EKG ---
Test Date: 2024-05-13 Test Time: 21:06:39 Hvac Service Tech: MEASUREMENT RESULTS: Intervals: Rate: 109 TX: 168 QRSD: 90 QT: 320 QTc: 430 [place]: P: 33 TX: 168 QRS: -8 T: 62 INTERPRETIVE STATEMENTS: Sinus tachycardia Inferior infarct, age undetermined Anterior infarct, age undetermined Abnormal ECG Compared to ECG 07/20/2023 07:57:04 Myocardial infarct finding now present Sinus rhythm no longer present Electronically Signed On 05-18-24 13:01:53 RESEARCH NURSE by Darinel Mcclain
== END 2024-05-15 15:45 | disposition home or self-care (01) | DRG 872 ==
LOC: ER 19:35 → 2ND 23:40
PROVIDERS: ADMIT Family Medicine; ATTEND Hospitalist
DX: A41.9 Sepsis, unspecified organism (principal); E87.20 Acidosis, unspecified; N17.9 Acute kidney failure, unspecified; E87.1 Hypo-osmolality and hyponatremia; R65.20 Severe sepsis without septic shock; G43.909 Migraine, unspecified, not intractable, without status migrainosus; E87.6 Hypokalemia; K52.9 Noninfective gastroenteritis and colitis, unspecified; Z88.8 Allergy status to other drugs, medicaments and biological substances; Z91.018 Allergy to other foods; Z91.048 Other nonmedicinal substance allergy status; Z79.899 Other long term (current) drug therapy
CPT/HCPCS: 36415; 70450; 74177; 80053; 81001; 83605; 83690; 83735; 84100; 85025; 85610; 85730; 86140; 87040; 87045; 87046; 87077; 87177; 87186; 87209; 87324; 87425; 89055; 93005; 96361; 96365; 96375; 99285; J0696; J1200; J1650; J2405; J2543; J2765; J2919; J7030; J7799; Q0169; Q9967